=== PATIENT | female | born 1950 | race Caucasian/White ===

== ENCOUNTER 2022-05-13 22:07 | Observation (INO) | payer MEDICARE, OTHER ==
--- NOTE | 2022-05-13 22:25 | ERPHSYRPT ---
- History of Present Illness Time Seen by Provider: 05/13/22 22:29 Historian: patient Exam Limitations: no limitations Physician History: Patient is a 71-year-old female presents emergency department for evaluation of left posterior flank pain radiating down to her left groin area. Symptoms started Marshal. Symptoms are constant. Symptoms are moderate in intensity. No specific worsening improving factors. Patient states she has had this pain in the past that spontaneously resolved. She describes this symptom as being a chronic intermittent. However the pain today is the worst that it has been. No trauma. No fever. No nausea vomiting or diaphoresis. No blood in her stool. Patient voices no other complaints or concerns at this time. Portions of this note were created with voice recognition technology. There may be grammatical, spelling, punctuation or sound alike errors Timing/Duration: day(s) (3 days, pain has been progressive.) Activities at Onset: none Quality: aching Abdominal Pain Onset Location: other (Left posterior flank ) Pain Radiation: LLQ (Pain radiates down from the left posterior flank to left lower quadrant) Severity of Pain-Max: moderate Severity of Pain-Current: mild Modifying Factors: Improves With: palpation (Palpation reproduces symptoms.) Associated Symptoms: denies symptoms Previous symptoms: no prior history Allergies/Adverse Reactions: codeine Allergy (Severe, Verified 05/13/22 22:41) Shortness of Breath latex Allergy (Intermediate, Verified 05/13/22 22:41) Blisters Home Medications: Atorvastatin Calcium 40 mg PO DAILY 05/13/22 [History] Bran/Gum/Fib/Rola/Psyl/Kelp/Pec [Fiber 6 Tablet] 1 tab PO DAILY 05/13/22 [History] Cetirizine HCl [Allergy] 1 tab PO DAILY 05/13/22 [History] Cyclobenzaprine HCl 10 mg [Cyclobenzaprine 10 MG] 10 mg PO TID PRN 05/13/22 [History] Dapagliflozin Propanediol [Farxiga] 5 mg PO DAILY 05/13/22 [History] Ergocalciferol (Vitamin D2) [Vitamin D2] 50 mcg PO DAILY 05/13/22 [History] Glipizide [Glipizide ER] 2.5 mg PO HS 05/13/22 [History] Levothyroxine Sodium [Levothyroxine] 25 mcg PO DAILY 05/13/22 [History] Losartan Potassium 50 mg [Cozaar 50 MG] 1 tab PO DAILY 05/13/22 [History] Metformin HCl 850 mg [Glucophage 850 MG] 1 tab PO HS 05/13/22 [History] Montelukast Sodium 10 mg [Singulair 10 MG] 10 mg PO HS 05/13/22 [History] Omeprazole 20 mg PO HS 05/13/22 [History] hydroCHLOROthiazide [Hydrochlorothiazide] 12.5 mg PO DAILY 05/13/22 [History] - Review of Systems Constitutional: No Symptoms, No Fever, No Chills Eyes: No Symptoms Ears, Nose, & Throat: No Symptoms Respiratory: No Symptoms, No Cough, No Dyspnea Cardiac: No Symptoms, No Chest Pain, No Edema, No Syncope Abdominal/Gastrointestinal: No Symptoms, No Abdominal Pain, No Nausea, No Vomiting, No Diarrhea Genitourinary Symptoms: No Symptoms, No Dysuria Musculoskeletal: No Symptoms, No Back Pain, No Neck Pain Skin: No Symptoms, No Rash Neurological: No Symptoms, No Dizziness, No Focal Weakness, No Sensory Changes Psychological: No Symptoms Endocrine: No Symptoms Hematologic/Lymphatic: No Symptoms Immunological/Allergic: No Symptoms All Other Systems: Reviewed and Negative - Nursing Vital Signs Nursing Vital Signs: Initial Vital Signs Temperature 99.1 F 05/13/22 22:27 Pulse Rate 85 05/13/22 22:27 Respiratory Rate 20 05/13/22 22:27 Blood Pressure 130/72 05/13/22 22:27 O2 Sat by Pulse Oximetry 96 05/13/22 22:27 Pain Scale Pain Intensity 7 - Physical Exam General Appearance: no apparent distress, alert Eye Exam: PERRL/EOMI, eyes nml inspection Ears, Nose, Throat Exam: normal ENT inspection, pharynx normal, moist mucous membranes Neck Exam: normal inspection, non-tender, supple, full range of motion Respiratory Exam: normal breath sounds, lungs clear, airway intact, No respiratory distress Cardiovascular Exam: regular rate/rhythm, normal heart sounds, normal peripheral pulses Gastrointestinal/Abdomen Exam: soft, tenderness (Tenderness flank down to the left lower quadrant.), No mass Back Exam: normal inspection, normal range of motion, No CVA tenderness, No vertebral tenderness Extremity Exam: normal inspection, normal range of motion, pelvis stable Neurologic Exam: alert, oriented x 3, cooperative, normal mood/affect, nml cerebellar function, sensation nml, No motor deficits Skin Exam: normal color, warm, dry SpO2 Interpretation: normal SpO2: 98 O2 Delivery: Room Air - Course Nursing assessment & vital signs reviewed: Yes - CT Exams Abdomen/Pelvis CT Interpretation: Tele-radiologist Report (There is a segment of wall thickening at the junction of the sigmoid and descending colon consistent in appearance with acute diverticulitis. Indeterminate exophytic left renal mass) Ordered Tests: Active Orders 24 hr Category Date Time Status EKG-ER Only STAT Care 05/13/22 22:26 Active IV Insertion STAT Care 05/13/22 22:26 Active ABDOMEN AND PELVIS W/0 CONTRAS [CT] Stat Exams 05/13/22 22:26 Taken CBC W DIFF Stat Lab 05/13/22 22:35 Completed CMP Stat Lab 05/13/22 22:35 Completed LIPASE Stat Lab 05/13/22 22:35 Completed TROPONIN Q3H Lab 05/13/22 22:35 Completed TROPONIN Q3H Lab 05/14/22 01:30 Completed UA W/RFX CULTURE Stat Lab 05/13/22 22:35 Completed Transfer Order Routine Transfer 05/14/22 Ordered Medication Summary Generic Name Dose Route Start Last Admin Trade Name Freq PRN Reason Stop Dose Admin Sodium Chloride 1,000 mls @ 100 mls/hr 05/13/22 22:30 05/13/22 22:33 Sodium Chloride 0.9% 1000 Ml IV 06/12/22 22:29 100 mls/hr .Q10H RUDOLPH Administration Discontinued Medications Generic Name Dose Route Start Last Admin Trade Name Freq PRN Reason Stop Dose Admin Levofloxacin/Dextrose 500 mg in 100 mls @ 100 mls/hr 05/14/22 01:42 05/14/22 02:43 Levofloxacin 500mg/100ml D5w IV 05/14/22 02:41 100 mls/hr STAT STA 100 mls/hr Administration Metronidazole 500 mg in 100 mls @ 200 mls/hr 05/14/22 01:43 05/14/22 02:09 Flagyl 500 Mg Ivpb IV 05/14/22 02:12 200 mls/hr STAT STA 200 mls/hr Administration Levofloxacin/Dextrose Confirm 05/14/22 02:05 Levofloxacin 500mg/100ml D5w Administered 05/14/22 02:06 Dose 500 mg in 100 mls @ ud IV .STK-MED ONE Metronidazole Confirm 05/14/22 02:05 Flagyl 500 Mg Ivpb Administered 05/14/22 02:06 Dose 500 mg in 100 mls @ ud IV .STK-MED ONE Ketorolac Tromethamine 30 mg 05/14/22 00:45 05/14/22 00:51 Ketorolac Tromethamine 30 Mg/Ml Inj IM 05/14/22 00:46 30 mg STAT ONE Administration Ketorolac Tromethamine Confirm 05/14/22 00:48 Ketorolac Tromethamine 30 Mg/Ml Inj Administered 05/14/22 00:49 Dose 30 mg .ROUTE .STK-MED ONE Morphine Sulfate 2 mg 05/13/22 22:36 05/13/22 22:46 Morphine Sulfate 2 Mg/Ml Inj IV 05/13/22 22:37 2 mg STAT ONE Administration Morphine Sulfate Confirm 05/13/22 22:44 Morphine Sulfate 2 Mg/Ml Inj Administered 05/13/22 22:45 Dose 2 mg .ROUTE .STK-MED ONE Morphine Sulfate 2 mg 05/14/22 01:45 05/14/22 02:08 Morphine Sulfate 2 Mg/Ml Inj IV 05/14/22 01:46 2 mg STAT ONE Administration Morphine Sulfate Confirm 05/14/22 02:05 Morphine Sulfate 2 Mg/Ml Inj Administered 05/14/22 02:06 Dose 2 mg .ROUTE .STK-MED ONE Ondansetron HCl 4 mg 05/13/22 22:36 05/13/22 22:47 Ondansetron Hcl 4 Mg/2 Ml Vial IV 05/13/22 22:37 4 mg STAT ONE Administration Ondansetron HCl Confirm 05/13/22 22:44 Ondansetron Hcl 4 Mg/2 Ml Vial Administered 05/13/22 22:45 Dose 4 mg .ROUTE .STK-MED ONE Lab/Rad Data: Laboratory Result Diagrams 05/13/22 22:35 05/13/22 22:35 Laboratory Results 05/14/22 05/14/22 05/13/22 Range/Units 02:00 01:30 22:35 WBC (4.0-10.5) x10^3/uL RBC (4.1-5.4) x10^6/uL Hgb (12.0-16.0) g/dL Hct (35-47) % MCV (78-100) fL MCH (26-32) pg MCHC (32-36) g/dL RDW (11.5-14.0) % Plt Count (150-450) x10^3/uL MPV (7.5-11.0) fL Gran % (36.0-66.0) % Immature Gran % (Auto) (0.00-0.4) % Nucleat RBC Rel Count (0.00-0.1) % Eos # (Auto) (0-0.5) x10^3/uL Immature Gran # (Auto) (0.00-0.03) x10^3u/L Absolute Lymphs (auto) (1.0-4.6) x10^3/uL Absolute Monos (auto) (0.0-1.3) x10^3/uL Absolute Nucleated RBC (0.00-0.01) x10^3u/L Lymphocytes % (24.0-44.0) % Monocytes % (0.0-12.0) % Eosinophils % (0.00-5.0) % Basophils % (0.0-0.4) % Absolute Granulocytes (1.4-6.9) x10^3/uL Basophils # (0-0.4) x10^3/uL Sodium (137-145) mmol/L Potassium (3.5-5.1) mmol/L Chloride (98-107) mmol/L Carbon Dioxide (22-30) mmol/L Anion Gap (5-15) MEQ/L BUN (7-17) mg/dL Creatinine (0.52-1.04) mg/dL Estimated GFR ML/MIN Glucose (74-106) mg/dL Calcium (8.4-10.2) mg/dL Total Bilirubin (0.2-1.3) mg/dL AST (14-36) U/L ALT (0-35) U/L Alkaline Phosphatase (38-126) U/L Troponin I < 0.012 (0.000-0.034) ng/mL Serum Total Protein (6.3-8.2) g/dL Albumin (3.5-5.0) g/dL Lipase (23-300) U/L Urinalys Dipstick Clnc MAIN LAB Urine Color YELLOW (YELLOW) Urine Appearance CLEAR (CLEAR) Urine pH 5.5 (5-6) Ur Specific [place] 1.010 (1.005-1.025) POC Urine Protein Conf NEGATIVE (Negative) Urine Ketones NEGATIVE (NEGATIVE) Urine Nitrite NEGATIVE (NEGATIVE) Urine Bilirubin NEGATIVE (NEGATIVE) Urine Urobilinogen 1 (0-1) mg/dL Urine Leukocytes NEGATIVE (NEGATIVE) Urine WBC (Auto) 6-10 (0-5) /HPF Urine RBC (Auto) 0-2 (0-2) /HPF U Epithel Cells (Auto) RARE (FEW) /HPF Urine Bacteria (Auto) RARE (NEGATIVE) /HPF Urine RBC NEGATIVE (0-5) Raul/ul Urine Mucus (Auto) SLIGHT (NEGATIVE) /HPF Ur Culture Indicated? NO Urine Glucose >=1000 (NEGATIVE) mg/dL Influenza Type A Ag NEGATIVE (NEGATIVE) Influenza Type B Ag NEGATIVE (NEGATIVE) RSV (PCR) NEGATIVE (Negative) SARS-CoV-2 (PCR) NEGATIVE (NEGATIVE) 05/13/22 05/13/22 05/13/22 Range/Units 22:35 22:35 22:35 WBC 11.3 H (4.0-10.5) x10^3/uL RBC 3.86 L (4.1-5.4) x10^6/uL Hgb 11.2 L (12.0-16.0) g/dL Hct 34.9 L (35-47) % MCV 90.4 (78-100) fL MCH 29.0 (26-32) pg MCHC 32.1 (32-36) g/dL RDW 12.2 (11.5-14.0) % Plt Count 195 (150-450) x10^3/uL MPV 9.9 (7.5-11.0) fL Gran % 69.8 H (36.0-66.0) % Immature Gran % (Auto) 0.3 (0.00-0.4) % Nucleat RBC Rel Count 0.0 (0.00-0.1) % Eos # (Auto) 0.12 (0-0.5) x10^3/uL Immature Gran # (Auto) 0.03 (0.00-0.03) x10^3u/L Absolute Lymphs (auto) 2.52 (1.0-4.6) x10^3/uL Absolute Monos (auto) 0.70 (0.0-1.3) x10^3/uL Absolute Nucleated RBC 0.00 (0.00-0.01) x10^3u/L Lymphocytes % 22.3 L (24.0-44.0) % Monocytes % 6.2 (0.0-12.0) % Eosinophils % 1.1 (0.00-5.0) % Basophils % 0.3 (0.0-0.4) % Absolute Granulocytes 7.89 H (1.4-6.9) x10^3/uL Basophils # 0.03 (0-0.4) x10^3/uL Sodium 138 (137-145) mmol/L Potassium 4.0 (3.5-5.1) mmol/L Chloride 100 (98-107) mmol/L Carbon Dioxide 26 (22-30) mmol/L Anion Gap 16.1 H (5-15) MEQ/L BUN 32 H (7-17) mg/dL Creatinine 1.65 H (0.52-1.04) mg/dL Estimated GFR 32.6 ML/MIN Glucose 132 H (74-106) mg/dL Calcium 9.8 (8.4-10.2) mg/dL Total Bilirubin 0.80 (0.2-1.3) mg/dL AST 45 H (14-36) U/L ALT 37 H (0-35) U/L Alkaline Phosphatase 168 H (38-126) U/L Troponin I < 0.012 (0.000-0.034) ng/mL Serum Total Protein 8.3 H (6.3-8.2) g/dL Albumin 4.4 (3.5-5.0) g/dL Lipase 111 (23-300) U/L Urinalys Dipstick Clnc Urine Color (YELLOW) Urine Appearance (CLEAR) Urine pH (5-6) Ur Specific [place] (1.005-1.025) POC Urine Protein Conf (Negative) Urine Ketones (NEGATIVE) Urine Nitrite (NEGATIVE) Urine Bilirubin (NEGATIVE) Urine Urobilinogen (0-1) mg/dL Urine Leukocytes (NEGATIVE) Urine WBC (Auto) (0-5) /HPF Urine RBC (Auto) (0-2) /HPF U Epithel Cells (Auto) (FEW) /HPF Urine Bacteria (Auto) (NEGATIVE) /HPF Urine RBC (0-5) Raul/ul Urine Mucus (Auto) (NEGATIVE) /HPF Ur Culture Indicated? Urine Glucose (NEGATIVE) mg/dL Influenza Type A Ag (NEGATIVE) Influenza Type B Ag (NEGATIVE) RSV (PCR) (Negative) SARS-CoV-2 (PCR) (NEGATIVE) - Progress Progress: improved Progress Note: Patient 71-year-old diabetic female presents to our ED with progressive ab dominal pain. Patient has a history of diverticulitis. Work-up reveals an acute diverticulitis. Patient received morphine for pain control. Leukocytosis observed on CBC. CT scan reveals acute diverticulitis as well as incidental left renal exophytic mass. Patient received Levaquin and Flagyl in our ED. We will admit patient for further evaluation and treatment. Patient will be admitted to Dr. Taveras's service. Dr. Taveras covering Dr. Gambino. plan of care discussed with patient. She agrees to admission at [facility] for further evaluation and treatment. She voices no other complaints or concerns at this time. Portions of this note were created with voice recognition technology. There may be grammatical, spelling, punctuation or sound alike errors 05/14/22 03:[address] Lucian Will see patient in: hospital (observation) Counseled pt/family regarding: lab results, diagnosis, rad results - Departure Departure Disposition: Home Clinical Impression: Leukocytosis, Chronic renal insufficiency, Left renal mass, Acute diverticulitis, Glucosuria Condition: Stable Critical Care Time: No Referrals: GUTIERREZ COOLEY [Primary Care Provider] - Follow up/PCP as directed
[2022-05-13] MEDS ORDERED: Sodium Chloride 0.9% 1000 ML 1,000 ML ONE (22:30)
[2022-05-13] MEDS ORDERED: Sodium Chloride 0.9% 1000 ML 1,000 ML IV SCH (22:30)
[2022-05-13] MEDS ORDERED: Zofran 4 MG/2 ML VIAL IV ONE (22:36)
[2022-05-13] MEDS ORDERED: MORPHINE SULFATE 2 MG INJ IV ONE (22:36)
[2022-05-13 22:39] LABS: Absolute Neutrophil Ct (ANC) 7.89 x10^3/uL (1.4-6.9); Basophil (Absolute #) 0.03 x10^3/uL (0-0.4); Eosinophil % 1.1 % (0.00-5.0); Eosinophil (Absolute #) 0.12 x10^3/uL (0-0.5); Hematocrit 34.9 % (35-47); Hemoglobin 11.2 g/dL (12.0-16.0); Lymphocyte (Absolute #) 2.52 x10^3/uL (1.0-4.6); Lymphocytes % 22.3 % (24.0-44.0); Mean Cell Volume 90.4 fL (78-100); Mean Corpuscular Hgb Concent. 32.1 g/dL (32-36); Mean Platelet Volume 9.9 fL (7.5-11.0); Monocytes % 6.2 % (0.0-12.0); Neutrophil % 69.8 % (36.0-66.0); Platelet Count 195 x10^3/uL (150-450); Red Blood Count 3.86 x10^6/uL (4.1-5.4); Red Cell Distribution Width 12.2 % (11.5-14.0); White Blood Count 11.3 x10^3/uL (4.0-10.5)
[2022-05-13 22:42] LABS: Bacteria RARE /HPF (NEGATIVE); Epithelial Cells RARE /HPF (FEW); Mucus SLIGHT /HPF (NEGATIVE); RBC 0-2 /HPF (0-2)
[2022-05-13 22:43] LABS: Appearance CLEAR (CLEAR); Bilirubin NEGATIVE (NEGATIVE); Glucose >=1000 mg/dL (NEGATIVE); Ketones NEGATIVE (NEGATIVE); Nitrite NEGATIVE (NEGATIVE); Ph 5.5 (5-6); Protein,Urine Dip NEGATIVE (Negative); RBC NEGATIVE Ery/ul (0-5); Urobilinogen 1 mg/dL (0-1)
[2022-05-13 22:44] LABS: Dipstick done @ ? MAIN LAB; Urine Cultured Indicated? NO
[2022-05-13] MEDS ORDERED: MORPHINE SULFATE 2 MG INJ ONE (22:44)
[2022-05-13] MEDS ORDERED: Zofran 4 MG/2 ML VIAL ONE (22:44)
[2022-05-13 23:04] LABS: ALBUMIN 4.4 g/dL (3.5-5.0); ANION GAP 16.1 MEQ/L (5-15); BILIRUBIN,TOTAL 0.8 mg/dL (0.2-1.3); Calcium 9.8 mg/dL (8.4-10.2); Creatinine 1 1.65 mg/dL (0.52-1.04); EST GLOMERULAR FILTRATION RATE 32.6 ML/MIN; Total Protein 8.3 g/dL (6.3-8.2)
[2022-05-14] MEDS ORDERED: TORAdol 30 mg Injection IM ONE (00:45)
[2022-05-14] MEDS ORDERED: TORAdol 30 mg Injection ONE (00:48)
[2022-05-14] MEDS ORDERED: Levofloxacin 500MG/100ML D5W 500 MG/100 ML BAG IV STA (01:42)
[2022-05-14] MEDS ORDERED: FLAGYL 500 MG IVPB 500 MG/100 ML BAG IV STA (01:43)
[2022-05-14] MEDS ORDERED: MORPHINE SULFATE 2 MG INJ IV ONE (01:45)
[2022-05-14] MEDS ORDERED: MORPHINE SULFATE 2 MG INJ ONE (02:05)
[2022-05-14] MEDS ORDERED: Levofloxacin 500MG/100ML D5W 500 MG/100 ML BAG IV ONE (02:05)
[2022-05-14] MEDS ORDERED: FLAGYL 500 MG IVPB 500 MG/100 ML BAG IV ONE (02:05)
[2022-05-14 02:31] LABS: INFLUENZA A NEGATIVE (NEGATIVE); INFLUENZA B NEGATIVE (NEGATIVE); RESPIRATORY SYNCTIAL VIRUS NEGATIVE (Negative); SARS-CoV-2 Xpert Express NEGATIVE (NEGATIVE)
[2022-05-14] MEDS ORDERED: MORPHINE SULFATE 2 MG INJ IV PRN ×2 (03:16→08:31)
[2022-05-14] MEDS ORDERED: Zofran 4 MG/2 ML VIAL IV PRN (03:16)
[2022-05-14 05:35] LABS: Absolute Neutrophil Ct (ANC) 6.12 x10^3/uL (1.4-6.9); Basophil (Absolute #) 0.02 x10^3/uL (0-0.4); Eosinophil % 1.1 % (0.00-5.0); Hemoglobin 10.2 g/dL (12.0-16.0); Lymphocyte (Absolute #) 2.14 x10^3/uL (1.0-4.6); Lymphocytes % 23.9 % (24.0-44.0); Mean Cell Volume 91.7 fL (78-100); Mean Corpuscular Hemoglobin 29.2 pg (26-32); Mean Corpuscular Hgb Concent. 31.9 g/dL (32-36); Mean Platelet Volume 10.8 fL (7.5-11.0); Monocyte (Absolute #) 0.55 x10^3/uL (0.0-1.3); Monocytes % 6.1 % (0.0-12.0); Neutrophil % 68.3 % (36.0-66.0); Platelet Count 137 x10^3/uL (150-450); Red Blood Count 3.49 x10^6/uL (4.1-5.4); Red Cell Distribution Width 12.2 % (11.5-14.0)
[2022-05-14 06:14] LABS: ALBUMIN 3.7 g/dL (3.5-5.0); ANION GAP 13.3 MEQ/L (5-15); BILIRUBIN,TOTAL 0.9 mg/dL (0.2-1.3); Calcium 9.1 mg/dL (8.4-10.2); Creatinine 1 1.68 mg/dL (0.52-1.04); EST GLOMERULAR FILTRATION RATE 31.9 ML/MIN; Potassium 4.2 mmol/L (3.5-5.1)
[2022-05-14] MEDS: FLAGYL 500 MG IVPB 500 MG/100 ML BAG IV SCH ×3 (06:42→18:32)
[2022-05-14] MEDS: Sodium Chloride 0.9% 1000 ML 1,000 ML IV SCH ×2 (07:53→18:32)
--- NOTE | 2022-05-14 08:27 | PCM.HP ---
History of Present Illness - Chief Complaint Chief Complaint: diverticulitis History of Present Illness: is a 71 year old female who reported to the ER with a complaint of left lower abdomen pain for the last 3-4 days with some radiation to the flank, no blood in stool, hasn't had a bowel movement for several days. found to have exophytic mass on left kidney, known kidney disease and sees neprhologist, has not been told if there was a mass there previously. - Review of Systems Constitutional: No Fever, No Chills Respiratory: No Cough, No Short Of Breath Cardiac: No Chest Pain, No Edema, No Syncope Abdominal/Gastrointestinal: Abdominal Pain Skin: No Rash All Other Systems: Reviewed and Negative Medications & Allergies Home Medications: Home Medication List Atorvastatin Calcium 40 mg PO DAILY 05/13/22 [History Confirmed 05/13/22] Cetirizine HCl [Allergy] 10 mg PO DAILY 05/13/22 [History Confirmed 05/14/22] Dapagliflozin Propanediol [Farxiga] 5 mg PO DAILY 05/13/22 [History Confirmed 05/13/22] Ergocalciferol (Vitamin D2) [Vitamin D2] 50 mcg PO DAILY 05/13/22 [History Confirmed 05/13/22] Glipizide [Glipizide ER] 2.5 mg PO HS 05/13/22 [History Confirmed 05/13/22] Levothyroxine Sodium [Levothyroxine] 25 mcg PO DAILY 05/13/22 [History Confirmed 05/13/22] Losartan Potassium 50 mg [Cozaar 50 MG] 50 mg PO DAILY 05/13/22 [History Confirmed 05/14/22] Metformin HCl 850 mg [Glucophage 850 MG] 850 mg PO HS 05/13/22 [History Confirmed 05/14/22] Montelukast Sodium 10 mg [Singulair 10 MG] 10 mg PO HS 05/13/22 [History Confirmed 05/13/22] Omeprazole 20 mg PO HS 05/13/22 [History Confirmed 05/13/22] hydroCHLOROthiazide [Hydrochlorothiazide] 12.5 mg PO DAILY 05/13/22 [History Confirmed 05/13/22] Allergies/Adverse Reactions: Allergies Allergy/AdvReac Type Severity Reaction Status Date / Time codeine Allergy Severe Shortness Verified 05/14/22 03:44 of Breath latex Allergy Intermediate Blisters Verified 05/14/22 03:44 - Past Medical History Past Medical History: Yes Neurological History: No Pertinent History ENT History: Cataracts Cardiac History: High Cholesterol, Hypertension Respiratory History: No Pertinent History Endocrine Medical History: Diabetes Type II, Hypothyroidism Musculoskelatal History: Arthritis, Fibromyalgia GI Medical History: Diverticulitis, GERD, Gallbladder Disease History: Other Pyscho-Social History: No Pertinent History Reproductive Disorders: No Pertinent History Comment: mass on kidney, anemia - Female History Are you now?: No - Past Surgical History Past Surgical History: Yes Neuro Surgical History: No Pertinent History Cardiac History: No Pertinent History Respiratory Surgery: No Pertinent History GI Surgical History: Appendectomy, Cholecystectomy Genitourinary Surgical Hx: No Pertinent History Musculskeletal Surgical Hx: No Pertinent History Female Surgical History: Hysterectomy, Dilation & Curettage Other Surgical History: right thumb, shoulder - Social History Smoking Status: Never smoker Exposure to second hand smoke: No Alcohol: None Drug Use: none - Physical Exam Vital Signs: Vital Signs - 24 hr Temp Pulse Resp BP Pulse Ox 05/14/22 07:28 98.4 F 69 16 106/55 92 L 05/14/22 03:47 97.0 F 80 16 114/56 94 L 05/14/22 03:11 98 05/14/22 02:00 70 18 115/63 96 05/14/22 01:00 74 18 128/82 93 L 05/14/22 00:00 77 18 95/45 96 05/13/22 23:00 78 16 115/59 93 L 05/13/22 22:27 99.1 F 85 20 130/72 96 General Appearance: mild distress Neurologic Exam: alert, oriented x 3 Respiratory Exam: normal breath sounds, lungs clear, No respiratory distress Cardiovascular Exam: regular rate/rhythm, normal heart sounds, normal peripheral pulses Gastrointestinal/Abdomen Exam: soft, tenderness (LLQ), No distention, No mass, No guarding, No rebound Extremity Exam: normal inspection, normal range of motion, pelvis stable Skin Exam: normal color, warm, dry, No rash Results - Labs Lab/Micro Results: Lab Results-Last 24 Hours 05/13/22 05/13/22 05/13/22 Range/Units 22:35 22:35 22:35 WBC 11.3 H (4.0-10.5) x10^3/uL RBC 3.86 L (4.1-5.4) x10^6/uL Hgb 11.2 L (12.0-16.0) g/dL Hct 34.9 L (35-47) % MCV 90.4 (78-100) fL MCH 29.0 (26-32) pg MCHC 32.1 (32-36) g/dL RDW 12.2 (11.5-14.0) % Plt Count 195 (150-450) x10^3/uL MPV 9.9 (7.5-11.0) fL Gran % 69.8 H (36.0-66.0) % Immature Gran % (Auto) 0.3 (0.00-0.4) % Nucleat RBC Rel Count 0.0 (0.00-0.1) % Eos # (Auto) 0.12 (0-0.5) x10^3/uL Immature Gran # (Auto) 0.03 (0.00-0.03) x10^3u/L Absolute Lymphs (auto) 2.52 (1.0-4.6) x10^3/uL Absolute Monos (auto) 0.70 (0.0-1.3) x10^3/uL Absolute Nucleated RBC 0.00 (0.00-0.01) x10^3u/L Lymphocytes % 22.3 L (24.0-44.0) % Monocytes % 6.2 (0.0-12.0) % Eosinophils % 1.1 (0.00-5.0) % Basophils % 0.3 (0.0-0.4) % Absolute Granulocytes 7.89 H (1.4-6.9) x10^3/uL Basophils # 0.03 (0-0.4) x10^3/uL Sodium 138 (137-145) mmol/L Potassium 4.0 (3.5-5.1) mmol/L Chloride 100 (98-107) mmol/L Carbon Dioxide 26 (22-30) mmol/L Anion Gap 16.1 H (5-15) MEQ/L BUN 32 H (7-17) mg/dL Creatinine 1.65 H (0.52-1.04) mg/dL Estimated GFR 32.6 ML/MIN Glucose 132 H (74-106) mg/dL POC Glucometer (74 to 106) mg/dL Calcium 9.8 (8.4-10.2) mg/dL Total Bilirubin 0.80 (0.2-1.3) mg/dL AST 45 H (14-36) U/L ALT 37 H (0-35) U/L Alkaline Phosphatase 168 H (38-126) U/L Troponin I < 0.012 (0.000-0.034) ng/mL Serum Total Protein 8.3 H (6.3-8.2) g/dL Albumin 4.4 (3.5-5.0) g/dL Lipase 111 (23-300) U/L Urinalys Dipstick Clnc Urine Color (YELLOW) Urine Appearance (CLEAR) Urine pH (5-6) Ur Specific [place] (1.005-1.025) POC Urine Protein Conf (Negative) Urine Ketones (NEGATIVE) Urine Nitrite (NEGATIVE) Urine Bilirubin (NEGATIVE) Urine Urobilinogen (0-1) mg/dL Urine Leukocytes (NEGATIVE) Urine WBC (Auto) (0-5) /HPF Urine RBC (Auto) (0-2) /HPF U Epithel Cells (Auto) (FEW) /HPF Urine Bacteria (Auto) (NEGATIVE) /HPF Urine RBC (0-5) Raul/ul Urine Mucus (Auto) (NEGATIVE) /HPF Ur Culture Indicated? Urine Glucose (NEGATIVE) mg/dL Influenza Type A Ag (NEGATIVE) Influenza Type B Ag (NEGATIVE) RSV (PCR) (Negative) SARS-CoV-2 (PCR) (NEGATIVE) 05/13/22 05/14/22 05/14/22 Range/Units 22:35 01:30 02:00 WBC (4.0-10.5) x10^3/uL RBC (4.1-5.4) x10^6/uL Hgb (12.0-16.0) g/dL Hct (35-47) % MCV (78-100) fL MCH (26-32) pg MCHC (32-36) g/dL RDW (11.5-14.0) % Plt Count (150-450) x10^3/uL MPV (7.5-11.0) fL Gran % (36.0-66.0) % Immature Gran % (Auto) (0.00-0.4) % Nucleat RBC Rel Count (0.00-0.1) % Eos # (Auto) (0-0.5) x10^3/uL Immature Gran # (Auto) (0.00-0.03) x10^3u/L Absolute Lymphs (auto) (1.0-4.6) x10^3/uL Absolute Monos (auto) (0.0-1.3) x10^3/uL Absolute Nucleated RBC (0.00-0.01) x10^3u/L Lymphocytes % (24.0-44.0) % Monocytes % (0.0-12.0) % Eosinophils % (0.00-5.0) % Basophils % (0.0-0.4) % Absolute Granulocytes (1.4-6.9) x10^3/uL Basophils # (0-0.4) x10^3/uL Sodium (137-145) mmol/L Potassium (3.5-5.1) mmol/L Chloride (98-107) mmol/L Carbon Dioxide (22-30) mmol/L Anion Gap (5-15) MEQ/L BUN (7-17) mg/dL Creatinine (0.52-1.04) mg/dL Estimated GFR ML/MIN Glucose (74-106) mg/dL POC Glucometer (74 to 106) mg/dL Calcium (8.4-10.2) mg/dL Total Bilirubin (0.2-1.3) mg/dL AST (14-36) U/L ALT (0-35) U/L Alkaline Phosphatase (38-126) U/L Troponin I < 0.012 (0.000-0.034) ng/mL Serum Total Protein (6.3-8.2) g/dL Albumin (3.5-5.0) g/dL Lipase (23-300) U/L Urinalys Dipstick Clnc MAIN LAB Urine Color YELLOW (YELLOW) Urine Appearance CLEAR (CLEAR) Urine pH 5.5 (5-6) Ur Specific [place] 1.010 (1.005-1.025) POC Urine Protein Conf NEGATIVE (Negative) Urine Ketones NEGATIVE (NEGATIVE) Urine Nitrite NEGATIVE (NEGATIVE) Urine Bilirubin NEGATIVE (NEGATIVE) Urine Urobilinogen 1 (0-1) mg/dL Urine Leukocytes NEGATIVE (NEGATIVE) Urine WBC (Auto) 6-10 (0-5) /HPF Urine RBC (Auto) 0-2 (0-2) /HPF U Epithel Cells (Auto) RARE (FEW) /HPF Urine Bacteria (Auto) RARE (NEGATIVE) /HPF Urine RBC NEGATIVE (0-5) Raul/ul Urine Mucus (Auto) SLIGHT (NEGATIVE) /HPF Ur Culture Indicated? NO Urine Glucose >=1000 (NEGATIVE) mg/dL Influenza Type A Ag NEGATIVE (NEGATIVE) Influenza Type B Ag NEGATIVE (NEGATIVE) RSV (PCR) NEGATIVE (Negative) SARS-CoV-2 (PCR) NEGATIVE (NEGATIVE) 05/14/22 05/14/22 05/14/22 Range/Units 04:00 05:00 07:07 WBC 9.0 (4.0-10.5) x10^3/uL RBC 3.49 L (4.1-5.4) x10^6/uL Hgb 10.2 L (12.0-16.0) g/dL Hct 32.0 L (35-47) % MCV 91.7 (78-100) fL MCH 29.2 (26-32) pg MCHC 31.9 L (32-36) g/dL RDW 12.2 (11.5-14.0) % Plt Count 137 L (150-450) x10^3/uL MPV 10.8 (7.5-11.0) fL Gran % 68.3 H (36.0-66.0) % Immature Gran % (Auto) 0.4 (0.00-0.4) % Nucleat RBC Rel Count 0.0 (0.00-0.1) % Eos # (Auto) 0.10 (0-0.5) x10^3/uL Immature Gran # (Auto) 0.04 H (0.00-0.03) x10^3u/L Absolute Lymphs (auto) 2.14 (1.0-4.6) x10^3/uL Absolute Monos (auto) 0.55 (0.0-1.3) x10^3/uL Absolute Nucleated RBC 0.00 (0.00-0.01) x10^3u/L Lymphocytes % 23.9 L (24.0-44.0) % Monocytes % 6.1 (0.0-12.0) % Eosinophils % 1.1 (0.00-5.0) % Basophils % 0.2 (0.0-0.4) % Absolute Granulocytes 6.12 (1.4-6.9) x10^3/uL Basophils # 0.02 (0-0.4) x10^3/uL Sodium 138 (137-145) mmol/L Potassium 4.2 (3.5-5.1) mmol/L Chloride 103 (98-107) mmol/L Carbon Dioxide 26 (22-30) mmol/L Anion Gap 13.3 (5-15) MEQ/L BUN 33 H (7-17) mg/dL Creatinine 1.68 H (0.52-1.04) mg/dL Estimated GFR 31.9 ML/MIN Glucose 81 (74-106) mg/dL POC Glucometer 85 (74 to 106) mg/dL Calcium 9.1 (8.4-10.2) mg/dL Total Bilirubin 0.90 (0.2-1.3) mg/dL AST 55 H (14-36) U/L ALT 42 H (0-35) U/L Alkaline Phosphatase 135 H (38-126) U/L Troponin I (0.000-0.034) ng/mL Serum Total Protein 7.0 (6.3-8.2) g/dL Albumin 3.7 (3.5-5.0) g/dL Lipase (23-300) U/L Urinalys Dipstick Clnc Urine Color (YELLOW) Urine Appearance (CLEAR) Urine pH (5-6) Ur Specific [place] (1.005-1.025) POC Urine Protein Conf (Negative) Urine Ketones (NEGATIVE) Urine Nitrite (NEGATIVE) Urine Bilirubin (NEGATIVE) Urine Urobilinogen (0-1) mg/dL Urine Leukocytes (NEGATIVE) Urine WBC (Auto) (0-5) /HPF Urine RBC (Auto) (0-2) /HPF U Epithel Cells (Auto) (FEW) /HPF Urine Bacteria (Auto) (NEGATIVE) /HPF Urine RBC (0-5) Raul/ul Urine Mucus (Auto) (NEGATIVE) /HPF Ur Culture Indicated? Urine Glucose (NEGATIVE) mg/dL Influenza Type A Ag (NEGATIVE) Influenza Type B Ag (NEGATIVE) RSV (PCR) (Negative) SARS-CoV-2 (PCR) (NEGATIVE) - Radiology Impressions Radiology Exams & Impressions: Radiology Procedures Category Date Time Status ABDOMEN AND PELVIS W/0 CONTRAS [CT] Stat Exams 05/13/22 22:26 Taken Assessment/Plan (1) Acute diverticulitis Current Visit: Yes Status: Acute Assessment & Plan: continue levaquin/flagyl Code(s): K57.92 - DVTRCLI OF INTEST, PART UNSP, W/O PERF OR ABSCESS W/O BLEED (2) Left renal mass Current Visit: Yes Status: Acute Assessment & Plan: ultrasound reviewed from 2019 and shows a left renal cyst 1.8cm, awaiting CT read by our radiologist for comparison Code(s): N28.89 - OTHER SPECIFIED DISORDERS OF KIDNEY AND URETER (3) Constipation Current Visit: Yes Status: Acute Code(s): K59.00 - CONSTIPATION, UNSPECIFIED (4) Chronic renal insufficiency Current Visit: Yes Status: Acute Code(s): N18.9 - CHRONIC KIDNEY DISEASE, UNSPECIFIED
[2022-05-14] MEDS ORDERED: HUMALOG SQ PRN (08:30)
[2022-05-14] MEDS ORDERED: DULCOLAX 5 MG PO PRN (08:30)
--- NOTE | 2022-05-14 08:54 | XRAY ---
Indication: Left abdomen/flank pain. Constipation and nausea. Multiple contiguous axial images obtained through the abdomen and pelvis without contrast. Comparison: None Lung bases demonstrates minimal bibasilar fibrosis/scarring. No infiltrate or effusion. Heart not enlarged. Small right infrahilar calcified node. Stomach mildly distended with food. Noncontrasted stomach and bowel loops appear nonobstructed. Mild diffuse scattered colonic fecal debris throughout including rectum and scattered sigmoid diverticulosis. Proximal sigmoid colon demonstrates short segment of mild circumferential wall thickening with pericolonic stranding favoring diverticulitis. No free fluid/air. Tiny hepatic calcified granuloma. Appendectomy, cholecystectomy, and partial hysterectomy reported. Left kidney demonstrates 2.2 cm upper pole exophytic mass, possible cyst. Remaining liver, pancreas, spleen, adrenal glands, kidneys, ureters, and bladder are unremarkable for noncontrast exam. Minimal scattered aortoiliac calcifications without AAA. Osseous structures intact with mild osteopenia and mild degenerative changes throughout the thoracolumbar spine. Impression: 1. Sigmoid diverticulosis with proximal diverticulitis. No complications. 2. 2.2 cm left renal exophytic mass, possible cyst. Initial sonogram may yield further information. 3. Mild diffuse fecal stasis. 4. Incidental chronic bony findings and old granulomatous disease. Comment: Preliminary interpretation made by [facility]. No critical discrepancy.
[2022-05-14] MEDS: Cozaar 50 MG PO SCH (09:47)
[2022-05-14] MEDS: hydroDIURIL 25 MG PO SCH (09:47)
[2022-05-14] MEDS: PROTONIX 40 MG IV IV SCH (09:47)
[2022-05-14] MEDS ORDERED: NON-FORMULARY ITEM (Hydrochlorothiazide [Hydrochlorothiazide] 12.5 MG Tablet) PO SCH (10:00)
[2022-05-14] MEDS ORDERED: NON-FORMULARY ITEM (Levothyroxine Sodium [Levothyroxine] 25 MCG Capsule) PO SCH (10:00)
[2022-05-14] MEDS: SYNTHROID 25 MCG PO SCH (10:39)
[2022-05-14] MEDS ORDERED: NON-FORMULARY ITEM (Omeprazole [Omeprazole] 20 MG Tab.Rap.Dr) PO SCH (22:00)
[2022-05-14] MEDS ORDERED: Protonix 40MG Tablet PO SCH (22:00)
[2022-05-14] MEDS ORDERED: Levaquin 250MG/50ML D5W 250 MG/50 ML BAG IV SCH (22:00)
[2022-05-14] MEDS ORDERED: Levofloxacin 500MG/100ML D5W 500 MG/100 ML BAG IV SCH (22:00)
[2022-05-15] MEDS: FLAGYL 500 MG IVPB 500 MG/100 ML BAG IV SCH ×2 (01:31→06:15)
[2022-05-15] MEDS: Sodium Chloride 0.9% 1000 ML 1,000 ML IV SCH ×2 (01:32→06:15)
[2022-05-15 06:13] LABS: Absolute Neutrophil Ct (ANC) 4.13 x10^3/uL (1.4-6.9); Basophil (Absolute #) 0.02 x10^3/uL (0-0.4); Eosinophil % 1.6 % (0.00-5.0); Hematocrit 31.2 % (35-47); Hemoglobin 9.9 g/dL (12.0-16.0); Lymphocyte (Absolute #) 1.53 x10^3/uL (1.0-4.6); Lymphocytes % 24.8 % (24.0-44.0); Mean Cell Volume 91.2 fL (78-100); Mean Corpuscular Hemoglobin 28.9 pg (26-32); Mean Corpuscular Hgb Concent. 31.7 g/dL (32-36); Mean Platelet Volume 10.6 fL (7.5-11.0); Monocyte (Absolute #) 0.37 x10^3/uL (0.0-1.3); Platelet Count 137 x10^3/uL (150-450); Red Blood Count 3.42 x10^6/uL (4.1-5.4); Red Cell Distribution Width 12.3 % (11.5-14.0); White Blood Count 6.2 x10^3/uL (4.0-10.5)
[2022-05-15 06:33] LABS: ALBUMIN 3.4 g/dL (3.5-5.0); ANION GAP 13.8 MEQ/L (5-15); BILIRUBIN,TOTAL 1.1 mg/dL (0.2-1.3); Calcium 9.2 mg/dL (8.4-10.2); Creatinine 1 1.43 mg/dL (0.52-1.04); EST GLOMERULAR FILTRATION RATE 38.4 ML/MIN; Potassium 4.6 mmol/L (3.5-5.1); Total Protein 6.5 g/dL (6.3-8.2)
[2022-05-15] MEDS ORDERED: CITROMA 296 ML PO ONE (08:34)
--- NOTE | 2022-05-15 08:38 | PCM.DS ---
Discharge Summary Date of Admission: 05/14/22 03:11 Admitting Physician: MAKAYLA STOUT Primary Care Provider: GUTIERREZ COOLEY Allergies Allergies codeine Allergy (Severe, Verified 05/14/22 03:44) Shortness of Breath latex Allergy (Intermediate, Verified 05/14/22 03:44) Blisters Hospital Summary - Hospital Course Hospital Course: patient admitted with LLQ abd pain, diverticulitis on CT, concerning with left renal mass, exophytic. on review ultrasound from 2019 showed 1.8cm exophytic cyst, ultrasound pending but suspect this is a cyst. tolerating po, pain improv ed and patient requesting discharge to home - Vitals & Intake/Output Vital Signs: Vital Signs Temperature 97.5 F 05/15/22 03:55 Pulse Rate 65 05/15/22 07:51 Respiratory Rate 16 05/15/22 07:51 Blood Pressure 99/55 05/15/22 07:51 O2 Sat by Pulse Oximetry 97 05/15/22 07:51 Intake & Output: Intake & Output 05/12/22 05/13/22 05/14/22 05/15/22 11:59 11:59 11:59 11:59 Intake Total 240 2223 Output Total 150 2400 Balance 90 -177 Weight 93.9 kg - Lab Result Diagrams: 05/15/22 05:59 05/15/22 05:59 Lab Results-Last 24 Hrs: Lab Results-Last 24 Hours 05/14/22 05/14/22 05/14/22 Range/Units 11:42 16:17 20:43 WBC (4.0-10.5) x10^3/uL RBC (4.1-5.4) x10^6/uL Hgb (12.0-16.0) g/dL Hct (35-47) % MCV (78-100) fL MCH (26-32) pg MCHC (32-36) g/dL RDW (11.5-14.0) % Plt Count (150-450) x10^3/uL MPV (7.5-11.0) fL Gran % (36.0-66.0) % Immature Gran % (Auto) (0.00-0.4) % Nucleat RBC Rel Count (0.00-0.1) % Eos # (Auto) (0-0.5) x10^3/uL Immature Gran # (Auto) (0.00-0.03) x10^3u/L Absolute Lymphs (auto) (1.0-4.6) x10^3/uL Absolute Monos (auto) (0.0-1.3) x10^3/uL Absolute Nucleated RBC (0.00-0.01) x10^3u/L Lymphocytes % (24.0-44.0) % Monocytes % (0.0-12.0) % Eosinophils % (0.00-5.0) % Basophils % (0.0-0.4) % Absolute Granulocytes (1.4-6.9) x10^3/uL Basophils # (0-0.4) x10^3/uL Sodium (137-145) mmol/L Potassium (3.5-5.1) mmol/L Chloride (98-107) mmol/L Carbon Dioxide (22-30) mmol/L Anion Gap (5-15) MEQ/L BUN (7-17) mg/dL Creatinine (0.52-1.04) mg/dL Estimated GFR ML/MIN Glucose (74-106) mg/dL POC Glucometer 88 88 86 (74 to 106) mg/dL Calcium (8.4-10.2) mg/dL Total Bilirubin (0.2-1.3) mg/dL AST (14-36) U/L ALT (0-35) U/L Alkaline Phosphatase (38-126) U/L Serum Total Protein (6.3-8.2) g/dL Albumin (3.5-5.0) g/dL 05/15/22 05/15/22 05/15/22 Range/Units 05:59 05:59 07:22 WBC 6.2 (4.0-10.5) x10^3/uL RBC 3.42 L (4.1-5.4) x10^6/uL Hgb 9.9 L (12.0-16.0) g/dL Hct 31.2 L (35-47) % MCV 91.2 (78-100) fL MCH 28.9 (26-32) pg MCHC 31.7 L (32-36) g/dL RDW 12.3 (11.5-14.0) % Plt Count 137 L (150-450) x10^3/uL MPV 10.6 (7.5-11.0) fL Gran % 67.0 H (36.0-66.0) % Immature Gran % (Auto) 0.3 (0.00-0.4) % Nucleat RBC Rel Count 0.0 (0.00-0.1) % Eos # (Auto) 0.10 (0-0.5) x10^3/uL Immature Gran # (Auto) 0.02 (0.00-0.03) x10^3u/L Absolute Lymphs (auto) 1.53 (1.0-4.6) x10^3/uL Absolute Monos (auto) 0.37 (0.0-1.3) x10^3/uL Absolute Nucleated RBC 0.00 (0.00-0.01) x10^3u/L Lymphocytes % 24.8 (24.0-44.0) % Monocytes % 6.0 (0.0-12.0) % Eosinophils % 1.6 (0.00-5.0) % Basophils % 0.3 (0.0-0.4) % Absolute Granulocytes 4.13 (1.4-6.9) x10^3/uL Basophils # 0.02 (0-0.4) x10^3/uL Sodium 139 (137-145) mmol/L Potassium 4.6 (3.5-5.1) mmol/L Chloride 105 (98-107) mmol/L Carbon Dioxide 25 (22-30) mmol/L Anion Gap 13.8 (5-15) MEQ/L BUN 23 H (7-17) mg/dL Creatinine 1.43 H (0.52-1.04) mg/dL Estimated GFR 38.4 ML/MIN Glucose 116 H (74-106) mg/dL POC Glucometer 114 H (74 to 106) mg/dL Calcium 9.2 (8.4-10.2) mg/dL Total Bilirubin 1.10 (0.2-1.3) mg/dL AST 81 H (14-36) U/L ALT 85 H (0-35) U/L Alkaline Phosphatase 155 H (38-126) U/L Serum Total Protein 6.5 (6.3-8.2) g/dL Albumin 3.4 L (3.5-5.0) g/dL Micro Results-Entire Visit: Accuchecks Date 05/14/22 Date 05/14/22 Date 05/14/22 Time 21:36 Time 16:36 Time 11:54 - Radiology Exams Ordered Rad Exams-Entire Visit: Radiology Procedures Category Date Time Status ABDOMEN AND PELVIS W/0 CONTRAS [CT] Stat Exams 05/13/22 22:26 Completed KIDNEY [US] Urgent Exams 05/15/22 10:00 Ordered Discharge Exam General Appearance: no apparent distress, alert Neurologic Exam: alert, oriented x 3 Respiratory Exam: normal breath sounds, lungs clear, No respiratory distress Cardiovascular Exam: regular rate/rhythm, normal heart sounds Gastrointestinal/Abdomen Exam: soft, normal bowel sounds, No tenderness Extremity Exam: normal inspection, normal range of motion Skin Exam: normal color, warm, dry Final Diagnosis/Problem List - Final Discharge Diagnosis/Problem (1) Acute diverticulitis Current Visit: Yes Status: Acute Code(s): K57.92 - DVTRCLI OF INTEST, PART UNSP, W/O PERF OR ABSCESS W/O BLEED (2) Left renal mass Current Visit: Yes Status: Acute Assessment & Plan: ultrasound pending, 2.2cm on CT, in 2020 has 1.8cm exophytic cyst. suspect cyst Code(s): N28.89 - OTHER SPECIFIED DISORDERS OF KIDNEY AND URETER (3) Constipation Current Visit: Yes Status: Acute Code(s): K59.00 - CONSTIPATION, UNSPECIFIED (4) Chronic renal insufficiency Current Visit: Yes Status: Acute Code(s): N18.9 - CHRONIC KIDNEY DISEASE, UNSPECIFIED - Discharge Disposition: Home, Self-Care Condition: Stable Prescriptions: New Metronidazole 500 mg [Flagyl 500 MG] 500 mg PO TID #15 tablet Levofloxacin [Levofloxacin 250MG Tablet] 250 mg PO DAILY #5 tab Continue hydroCHLOROthiazide [Hydrochlorothiazide] 12.5 mg PO DAILY Omeprazole 20 mg PO HS Montelukast Sodium 10 mg [Singulair 10 MG] 10 mg PO HS Metformin HCl 850 mg [Glucophage 850 MG] 850 mg PO HS Losartan Potassium 50 mg [Cozaar 50 MG] 50 mg PO DAILY Levothyroxine Sodium [Levothyroxine] 25 mcg PO DAILY Glipizide [Glipizide ER] 2.5 mg PO HS Ergocalciferol (Vitamin D2) [Vitamin D2] 50 mcg PO DAILY Dapagliflozin Propanediol [Farxiga] 5 mg PO DAILY Cetirizine HCl [Allergy] 10 mg PO DAILY Atorvastatin Calcium 40 mg PO DAILY Follow up with: GUTIERREZ COOLEY [Primary Care Provider] - Call for Appointment
[2022-05-15] MEDS ORDERED: CITROMA 296 ML ONE (09:04)
[2022-05-15] MEDS: hydroDIURIL 25 MG PO SCH (11:09)
[2022-05-15] MEDS: Cozaar 50 MG PO SCH (11:09)
[2022-05-15] MEDS: PROTONIX 40 MG IV IV SCH (11:10)
[2022-05-15] MEDS: SYNTHROID 25 MCG PO SCH (11:10)
[2022-05-15 11:32] LABS: Slide Review 1 YES
--- NOTE | 2022-05-15 11:57 | XRAY ---
Indication: Left renal mass on recent CT abdomen/pelvis May 13, 2022. Two-dimensional renal sonogram performed. Comparison: October 10, 2020 Both kidneys again normal in reniform shape with normal color perfusion. Right kidney measures 11.2 x 5.1 x 4.7 cm and the left measures 11.3 x 5.1 x 4.3 cm. Left upper pole again demonstrates grossly stable 2 cm cortical cyst. No new solid/cystic renal mass or hydronephrosis. Urinary bladder is near empty and grossly unremarkable. Impression: Grossly stable left upper renal cortical cyst corresponding to CT finding. Remaining renal sonogram is negative.
[2022-05-15 12:18] VITALS: BP 140/63; PULSE 68; O2SAT 100
== END 2022-05-15 13:35 | disposition home or self-care (01) ==
LOC: ED 22:07 → MED SURG 05-14 03:11
PROVIDERS: ADMIT Family Medicine; ATTEND Family Medicine
DX: K57.92 Diverticulitis of intestine, part unspecified, without perforation or abscess without bleeding (principal); N28.89 Other specified disorders of kidney and ureter; K59.00 Constipation, unspecified; N18.9 Chronic kidney disease, unspecified; E11.9 Type 2 diabetes mellitus without complications; I10 Essential (primary) hypertension; E78.00 Pure hypercholesterolemia, unspecified; E03.9 Hypothyroidism, unspecified; Z79.899 Other long term (current) drug therapy; Z20.828 Contact with and (suspected) exposure to other viral communicable diseases
CPT/HCPCS: 0241U; 36000; 36415; 74176; 76770; 80053; 81015; 82947; 83690; 84484; 85025; 93005; 93268; 96372; 96374; 96375; 96376; 99285; G0378; J1885; J1956; J2270; J2405; A9270-GY

== ENCOUNTER 2022-07-05 12:56 | Observation (INO) | payer MEDICARE, OTHER ==
[2022-07-05] MEDS ORDERED: Sodium Chloride 0.9% 1000 ML 1,000 ML IV STA (13:30)
[2022-07-05] MEDS ORDERED: Zofran 4 MG/2 ML VIAL IV ONE (13:30)
[2022-07-05] MEDS ORDERED: ANTIVERT 25 MG PO ONE (13:30)
[2022-07-05 14:00] LABS: Absolute Neutrophil Ct (ANC) 5.54 x10^3/uL (1.4-6.9); Basophil (Absolute #) 0.02 x10^3/uL (0-0.4); Eosinophil % 0.4 % (0.00-5.0); Eosinophil (Absolute #) 0.03 x10^3/uL (0-0.5); Hematocrit 35.9 % (35-47); Hemoglobin 11.6 g/dL (12.0-16.0); Lymphocyte (Absolute #) 1.02 x10^3/uL (1.0-4.6); Lymphocytes % 14.4 % (24.0-44.0); Mean Cell Volume 90.2 fL (78-100); Mean Corpuscular Hemoglobin 29.1 pg (26-32); Mean Corpuscular Hgb Concent. 32.3 g/dL (32-36); Mean Platelet Volume 10.7 fL (7.5-11.0); Monocyte (Absolute #) 0.45 x10^3/uL (0.0-1.3); Monocytes % 6.4 % (0.0-12.0); Neutrophil % 78.2 % (36.0-66.0); Platelet Count 168 x10^3/uL (150-450); Red Blood Count 3.98 x10^6/uL (4.1-5.4); Red Cell Distribution Width 13.1 % (11.5-14.0); White Blood Count 7.1 x10^3/uL (4.0-10.5)
[2022-07-05] MEDS ORDERED: TYLENOL 325 MG PO STA (14:06)
--- NOTE | 2022-07-05 14:08 | ERPHSYRPT ---
- History of Present Illness Time Seen by Provider: 07/05/22 13:03 Source: patient Exam Limitations: no limitations Patient Subjective Stated Complaint: Dizziness Triage Nursing Assessment: Patient brought back to ED per w/c and transferred to bed with assist of 1. Patient A+O x.3 Patient's skin flushed, warm and dry. Patient complains of dizziness, fever, congestion, headache, bodyaches and weakness since yesterday. Patient complains of pain all over 03/12. Lungs clear a/p chriss. Physician History: 71-year-old female presented in the ER with chief complaint of dizziness and fever chills with URI symptoms. Patient reports she started to feel dizzy lightheaded yesterday whenever she gets up and tries to walk she feels she is going to fall and pass out. This is progressively worsening. Denies any focal numbness tingling weakness. She also reports having URI symptoms with sinus/nasal congestion with minimal phlegm productive cough with some chest soreness and body aches. Patient has a fever of 101 on presentation in the ER. No abdominal pain nausea or vomiting. Timing/Duration: today, gradual onset Cough Quality/Degree: mild, moderate, productive cough Associated Symptoms: fever, chills, chest pain/soreness, cough, dizziness, headache, muscle aches, nasal congestion, nasal drainage, sinus infection Allergies/Adverse Reactions: codeine Allergy (Severe, Verified 07/05/22 13:09) Shortness of Breath latex Allergy (Intermediate, Verified 07/05/22 13:09) Blisters Home Medications: Atorvastatin Calcium 40 mg PO DAILY 05/13/22 [History] Cetirizine HCl [Allergy] 10 mg PO DAILY 05/13/22 [History] Dapagliflozin Propanediol [Farxiga] 5 mg PO DAILY 05/13/22 [History] Ergocalciferol (Vitamin D2) [Vitamin D2] 50 mcg PO DAILY 05/13/22 [History] Glipizide [Glipizide ER] 2.5 mg PO HS 05/13/22 [History] Levothyroxine Sodium [Levothyroxine] 25 mcg PO DAILY 05/13/22 [History] Losartan Potassium 50 mg [Cozaar 50 MG] 50 mg PO DAILY 05/13/22 [History] Metformin HCl 850 mg [Glucophage 850 MG] 850 mg PO HS 05/13/22 [History] Montelukast Sodium 10 mg [Singulair 10 MG] 10 mg PO HS 05/13/22 [History] Omeprazole 20 mg PO HS 05/13/22 [History] hydroCHLOROthiazide [Hydrochlorothiazide] 12.5 mg PO DAILY 05/13/22 [History] Hx Tetanus, Diphtheria Vaccination/Date Given: Yes Hx Influenza Vaccination/Date Given: Yes Hx Pneumococcal Vaccination/Date Given: Yes Immunizations Up to Date: Yes Travel Risk - International Travel Have you traveled outside of the country in past 3 weeks: No - Coronavirus Screening Are you exhibiting any of the following symptoms?: Yes Symptoms: Fever, Headaches/Body Aches/Fatigue Close contact with a COVID-19 positive Pt in past 14-21 Days: No - Vaccine Status Have you recieved a Covid-19 vaccination: Yes [employer]: [employer] - Review of Systems Constitutional: Fever, Chills, Fatigue, Weakness Eyes: No Symptoms Ears, Nose, & Throat: Nose Congestion, Sinus Drainage Respiratory: Cough Cardiac: Chest Pain Abdominal/Gastrointestinal: No Symptoms Genitourinary Symptoms: No Symptoms Musculoskeletal: Myalgias Skin: No Symptoms Neurological: Dizziness, Headache Psychological: No Symptoms Endocrine: No Symptoms Hematologic/Lymphatic: No Symptoms Immunological/Allergic: No Symptoms - Past Medical History Pertinent Past Medical History: Yes Neurological History: No Pertinent History ENT History: Cataracts Cardiac History: High Cholesterol, Hypertension Respiratory History: No Pertinent History Endocrine Medical History: Diabetes Type II, Hypothyroidism Musculoskeletal History: Arthritis, Fibromyalgia GI Medical History: Diverticulitis, GERD, Gallbladder Disease History: Other Psycho-Social History: No Pertinent History Female Reproductive Disorders: No Pertinent History Other Medical History: mass on kidney, anemia - Past Surgical History Past Surgical History: Yes Neuro Surgical History: No Pertinent History Cardiac: No Pertinent History Respiratory: No Pertinent History Gastrointestinal: Appendectomy, Cholecystectomy Genitourinary: No Pertinent History Musculoskeletal: No Pertinent History Female Surgical History: Hysterectomy, Dilation & Curettage Other Surgical History: right thumb, shoulder - Social History Smoking Status: Never smoker Exposure to second hand smoke: No Drug Use: none Patient Lives Alone: No - Nursing Vital Signs Nursing Vital Signs: Initial Vital Signs Temperature 101.3 F 07/05/22 13:09 Pulse Rate 84 07/05/22 13:09 Respiratory Rate 18 07/05/22 13:09 Blood Pressure 125/58 07/05/22 13:09 O2 Sat by Pulse Oximetry 98 07/05/22 13:09 Pain Scale Pain Intensity 5 - Physical Exam General Appearance: no apparent distress, alert Eye Exam: PERRL/EOMI, eyes nml inspection Ears, Nose, Throat Exam: TMs normal, moist mucous membranes, pharyngeal erythema Neck Exam: normal inspection, non-tender, supple, full range of motion, No meningismus Respiratory Exam: normal breath sounds, lungs clear Cardiovascular Exam: regular rate/rhythm, normal heart sounds Gastrointestinal/Abdomen Exam: soft, normal bowel sounds, No tenderness Back Exam: normal inspection, normal range of motion Extremity Exam: normal inspection, normal range of motion Neurologic Exam: alert, oriented x 3, cooperative Skin Exam: normal color SpO2 Interpretation: normal SpO2: 98 O2 Delivery: Room Air - Course EKG Interpreted by Me: RATE (82), Sinus Rhythm, NORMAL AXIS, NORMAL INTERVALS, Other (Nonspecific T wave changes) Ordered Tests: Active Orders 24 hr Category Date Time Status Bedrest ROUTINE Activity 07/05/22 16:12 Active Up With Assistance ROUTINE Activity 07/05/22 16:12 Active Code Status Order ROUTINE Care 07/05/22 16:12 Active Fall Protocol Q1H Care 07/05/22 16:12 Active IV Care Q6H Care 07/05/22 16:12 Active IV Insertion STAT Care 07/05/22 13:32 Completed Neuro Checks Q4H Care 07/05/22 16:12 Active POCT Glucose Check ACHS Care 07/05/22 16:[address] in Observation ROUTINE Care 07/05/22 16:12 Completed Stefano Romeo ROUTINE Care 07/05/22 16:12 Active Consistent Carbohydrate Diet 1800 Calorie Diet 07/05/22 Dinner Active CHEST 1 VIEW (PORTABLE) Stat Exams 07/05/22 13:30 Completed HEAD WITHOUT CONTRAST [CT] Stat Exams 07/05/22 13:30 Completed BLOOD CULTURE Stat Lab 07/05/22 13:45 Received CBC W DIFF AM.LAB Lab 07/06/22 04:00 Ordered CBC W DIFF Stat Lab 07/05/22 13:15 Completed CMP AM.LAB Lab 07/06/22 04:00 Ordered CULTURE,URINE Stat Lab 07/05/22 13:33 Received Lactic Acid Stat Lab 07/05/22 13:30 Completed MAGNESIUM Stat Lab 07/05/22 13:00 Received PROCALCITONIN Stat Lab 07/05/22 13:00 Received TROPONIN Q4H Lab 07/05/22 17:30 Ordered TROPONIN Q4H Lab 07/05/22 21:30 Ordered UA W/RFX CULTURE Stat Lab 07/05/22 13:33 Completed Transfer Order Routine Transfer 07/05/22 Completed Medication Summary Generic Name Dose Route Start Last Admin Trade Name Scooter PRN Reason Stop Dose Admin Acetaminophen 650 mg 07/05/22 16:12 Acetaminophen 325 Mg Tablet PO 08/04/22 16:11 Q4H PRN PRN PAIN AND/OR FEVER Albuterol/Ipratropium 3 ml 07/05/22 16:12 Ipratropium/Albuterol Sulfate 3 Ml Ampul.Neb IH 08/04/22 16:11 Q4HPRN PRN SHORTNESS OF BREATH/WHEEZING Famotidine 20 mg 07/05/22 22:00 Famotidine 20 Mg/1 Vial IV 08/04/22 21:59 Q12HT RUDOLPH Sodium Chloride 1,000 mls @ 100 mls/hr 07/05/22 16:12 Sodium Chloride 0.9% 1000 Ml IV 08/04/22 16:11 .Q10H RUDOLPH Ceftriaxone Sodium/Dextrose 1 g in 50 mls @ 100 mls/hr 07/06/22 10:00 Rocephin 1 Gm-D5w 50 Ml Bag IV 07/09/22 09:59 Q24H10 RUDOLPH Insulin Human Lispro 0 unit 07/05/22 16:12 Insulin Lispro 1 Unit SQ 08/04/22 16:11 UD PRN HYPERGLYCEMIA Morphine Sulfate 2 mg 07/05/22 16:12 Morphine Sulfate 2 Mg/Ml Inj IV 07/10/22 16:11 Q4H PRN PRN PAIN Ondansetron HCl 4 mg 07/05/22 16:12 Ondansetron Hcl 4 Mg/2 Ml Vial IV 08/04/22 16:11 Q6H PRN PRN NAUSEA/VOMITING Discontinued Medications Generic Name Dose Route Start Last Admin Trade Name Scooter PRN Reason Stop Dose Admin Acetaminophen 975 mg 07/05/22 14:06 07/05/22 14:12 Acetaminophen 325 Mg Tablet PO 07/05/22 14:07 975 mg STAT STA Administration Acetaminophen Confirm 07/05/22 14:09 Acetaminophen 325 Mg Tablet Administered 07/05/22 14:10 Dose 975 mg .ROUTE .STK-MED ONE Sodium Chloride 1,000 mls @ 999 mls/hr 07/05/22 13:30 07/05/22 15:21 Sodium Chloride 0.9% 1000 Ml IV 07/05/22 14:30 Infused .Q1H1M STA Infusion Sodium Chloride Confirm 07/05/22 14:10 Sodium Chloride 0.9% 1000 Ml Administered 07/05/22 14:11 Dose 1,000 mls @ ud .ROUTE .STK-MED ONE Ceftriaxone Sodium/Dextrose 1 g in 50 mls @ 100 mls/hr 07/05/22 15:39 07/05/22 15:54 Rocephin 1 Gm-D5w 50 Ml Bag IV 07/05/22 16:08 100 ml/hr STAT STA 100 mls/hr Administration Ceftriaxone Sodium/Dextrose Confirm 07/05/22 15:52 Rocephin 1 Gm-D5w 50 Ml Bag Administered 07/05/22 15:53 Dose 1 g in 50 mls @ ud IV .STK-MED ONE Meclizine HCl 25 mg 07/05/22 13:30 07/05/22 14:11 Meclizine Hcl 25 Mg Tablet PO 07/05/22 13:31 25 mg STAT ONE Administration Meclizine HCl Confirm 07/05/22 14:09 Meclizine Hcl 25 Mg Tablet Administered 07/05/22 14:10 Dose 25 mg .ROUTE .STK-MED ONE Ondansetron HCl 4 mg 07/05/22 13:30 07/05/22 14:11 Ondansetron Hcl 4 Mg/2 Ml Vial IV 07/05/22 13:31 4 mg STAT ONE Administration Ondansetron HCl Confirm 07/05/22 14:09 Ondansetron Hcl 4 Mg/2 Ml Vial Administered 07/05/22 14:10 Dose 4 mg .ROUTE .STK-MED ONE Lab/Rad Data: Laboratory Result Diagrams 07/05/22 13:15 07/05/22 13:15 Laboratory Results 07/05/22 07/05/22 07/05/22 Range/Units 13:45 13:33 13:30 WBC (4.0-10.5) x10^3/uL RBC (4.1-5.4) x10^6/uL Hgb (12.0-16.0) g/dL Hct (35-47) % MCV (78-100) fL MCH (26-32) pg MCHC (32-36) g/dL RDW (11.5-14.0) % Plt Count (150-450) x10^3/uL MPV (7.5-11.0) fL Gran % (36.0-66.0) % Immature Gran % (Auto) (0.00-0.4) % Nucleat RBC Rel Count (0.00-0.1) % Eos # (Auto) (0-0.5) x10^3/uL Immature Gran # (Auto) (0.00-0.03) x10^3u/L Absolute Lymphs (auto) (1.0-4.6) x10^3/uL Absolute Monos (auto) (0.0-1.3) x10^3/uL Absolute Nucleated RBC (0.00-0.01) x10^3u/L Lymphocytes % (24.0-44.0) % Monocytes % (0.0-12.0) % Eosinophils % (0.00-5.0) % Basophils % (0.0-0.4) % Absolute Granulocytes (1.4-6.9) x10^3/uL Basophils # (0-0.4) x10^3/uL Sodium Direct (138-146) mmol/L Potassium (3.5-4.9) mmol/L Chloride (98-109) mmol/L Carbon Dioxide (24-29) mmol/L Venous BUN (8-26) mg/dL Creatinine (0.6-1.3) mg/dL Glucose (70-105) mg/dL Lactic Acid 1.6 (0.4-2.0) Ionized Calcium (1.12-1.32) mmol/L Magnesium Troponin (0.00-0.03) ng/mL Procalcitonin Urinalys Dipstick Clnc MAIN LAB Urine Color YELLOW (YELLOW) Urine Appearance CLEAR (CLEAR) Urine pH 7.0 (5-6) Ur Specific [place] 1.015 (1.005-1.025) POC Urine Protein Conf NEGATIVE (Negative) Urine Ketones NEGATIVE (NEGATIVE) Urine Nitrite NEGATIVE (NEGATIVE) Urine Bilirubin NEGATIVE (NEGATIVE) Urine Urobilinogen 0.2 (0-1) mg/dL Urine Leukocytes NEGATIVE (NEGATIVE) Urine WBC (Auto) 6-10 (0-5) /HPF Urine RBC (Auto) 0-2 (0-2) /HPF U Epithel Cells (Auto) RARE (FEW) /HPF Urine Bacteria (Auto) NONE SEEN (NEGATIVE) /HPF Urine RBC NEGATIVE (0-5) Raul/ul Ur Culture Indicated? YES Urine Glucose >=1000 (NEGATIVE) mg/dL Influenza Type A Ag NEGATIVE (NEGATIVE) Influenza Type B Ag NEGATIVE (NEGATIVE) RSV (PCR) NEGATIVE (Negative) SARS-CoV-2 (PCR) POSITIVE A (NEGATIVE) 07/05/22 07/05/22 Range/Units 13:15 13:15 WBC 7.1 (4.0-10.5) x10^3/uL RBC 3.98 L (4.1-5.4) x10^6/uL Hgb 11.6 L (12.0-16.0) g/dL Hct 35.9 (35-47) % MCV 90.2 (78-100) fL MCH 29.1 (26-32) pg MCHC 32.3 (32-36) g/dL RDW 13.1 (11.5-14.0) % Plt Count 168 (150-450) x10^3/uL MPV 10.7 (7.5-11.0) fL Gran % 78.2 H (36.0-66.0) % Immature Gran % (Auto) 0.3 (0.00-0.4) % Nucleat RBC Rel Count 0.0 (0.00-0.1) % Eos # (Auto) 0.03 (0-0.5) x10^3/uL Immature Gran # (Auto) 0.02 (0.00-0.03) x10^3u/L Absolute Lymphs (auto) 1.02 (1.0-4.6) x10^3/uL Absolute Monos (auto) 0.45 (0.0-1.3) x10^3/uL Absolute Nucleated RBC 0.00 (0.00-0.01) x10^3u/L Lymphocytes % 14.4 L (24.0-44.0) % Monocytes % 6.4 (0.0-12.0) % Eosinophils % 0.4 (0.00-5.0) % Basophils % 0.3 (0.0-0.4) % Absolute Granulocytes 5.54 (1.4-6.9) x10^3/uL Basophils # 0.02 (0-0.4) x10^3/uL Sodium Direct 137 L (138-146) mmol/L Potassium 3.8 (3.5-4.9) mmol/L Chloride 100 (98-109) mmol/L Carbon Dioxide 25 (24-29) mmol/L Venous BUN 32 H (8-26) mg/dL Creatinine 1.6 H (0.6-1.3) mg/dL Glucose 99 (70-105) mg/dL Lactic Acid (0.4-2.0) Ionized Calcium 1.21 (1.12-1.32) mmol/L Magnesium Cancelled Troponin 0.01 (0.00-0.03) ng/mL Procalcitonin Cancelled Urinalys Dipstick Clnc Urine Color (YELLOW) Urine Appearance (CLEAR) Urine pH (5-6) Ur Specific [place] (1.005-1.025) POC Urine Protein Conf (Negative) Urine Ketones (NEGATIVE) Urine Nitrite (NEGATIVE) Urine Bilirubin (NEGATIVE) Urine Urobilinogen (0-1) mg/dL Urine Leukocytes (NEGATIVE) Urine WBC (Auto) (0-5) /HPF Urine RBC (Auto) (0-2) /HPF U Epithel Cells (Auto) (FEW) /HPF Urine Bacteria (Auto) (NEGATIVE) /HPF Urine RBC (0-5) Raul/ul Ur Culture Indicated? Urine Glucose (NEGATIVE) mg/dL Influenza Type A Ag (NEGATIVE) Influenza Type B Ag (NEGATIVE) RSV (PCR) (Negative) SARS-CoV-2 (PCR) (NEGATIVE) - Progress Progress: improved Air Movement: good Progress Note: 07/05/22 15:52 71-year-old is evaluated for flulike symptoms with dizziness and a fever of 101 on presentation. She is given fluids and Tylenol, on reevaluation feeling better. CT head is negative. Chest x-ray no pneumonic infiltrative process. Has normal white count, CKD with stable renal functions. Does have UTI and given a dose of Rocephin. Patient has a positive COVID-19. She still get dizzy and lightheaded with standing. Discussed with , reviewed history, work-up, recommended holding off on steroid and remdesivir for now. Patient is being admitted we will continue with IV hydration gently. Blood Culture(s) Obtained: Yes Antibiotics given: Yes Discussed with : Chuy Will see patient in: hospital (observation) Counseled pt/family regarding: lab results, diagnosis, rad results - Departure Departure Disposition: Observation Clinical Impression: COVID-19 virus detected, Acute UTI, Viral syndrome, Dizziness Condition: Stable Critical Care Time: No
[2022-07-05] MEDS ORDERED: ANTIVERT 25 MG ONE (14:09)
[2022-07-05] MEDS ORDERED: Zofran 4 MG/2 ML VIAL ONE (14:09)
[2022-07-05] MEDS ORDERED: TYLENOL 325 MG ONE (14:09)
[2022-07-05 14:10] LABS: Epithelial Cells RARE /HPF (FEW); RBC 0-2 /HPF (0-2)
[2022-07-05] MEDS ORDERED: Sodium Chloride 0.9% 1000 ML 1,000 ML ONE (14:10)
[2022-07-05 14:11] LABS: Appearance CLEAR (CLEAR); Bilirubin NEGATIVE (NEGATIVE); Dipstick done @ ? MAIN LAB; Glucose >=1000 mg/dL (NEGATIVE); Ketones NEGATIVE (NEGATIVE); Nitrite NEGATIVE (NEGATIVE); Protein,Urine Dip NEGATIVE (Negative); RBC NEGATIVE Ery/ul (0-5); Specific Gravity 1.015 (1.005-1.025); Urobilinogen 0.2 mg/dL (0-1)
[2022-07-05 14:21] LABS: Bacteria NONE SEEN /HPF (NEGATIVE)
[2022-07-05 14:22] LABS: Urine Cultured Indicated? YES
[2022-07-05 14:48] LABS: INFLUENZA A NEGATIVE (NEGATIVE); INFLUENZA B NEGATIVE (NEGATIVE); RESPIRATORY SYNCTIAL VIRUS NEGATIVE (Negative)
[2022-07-05 14:59] LABS: ISTAT CREA 1.6 mg/dL (0.6-1.3); ISTAT K 3.8 mmol/L (3.5-4.9)
[2022-07-05 15:09] LABS: ISTAT cTNI 0.01 ng/mL (0.00-0.03)
--- NOTE | 2022-07-05 15:20 | XRAY ---
Indication: Fever, headache, dizziness, and weakness. Multiple contiguous images obtained through the head without contrast. Comparison: None Age-appropriate global atrophy and minimal periventricular degenerative micro-ischemia bilaterally. No acute intracranial hemorrhage, abnormal extra-axial fluid collection, or mass effect. Fourth ventricle is midline without hydrocephalus. Bony calvarium intact. Mild mucosal thickening both ethmoid sinuses. Remaining visualized paranasal sinuses and mastoid air cells are clear. Impression: Nonacute senile brain. Incidental paranasal sinus disease.
[2022-07-05 15:21] LABS: SARS-CoV-2 Xpert Express POSITIVE (NEGATIVE)
--- NOTE | 2022-07-05 15:21 | XRAY ---
Indication: Dizziness, headache, fever, and weakness. Comparison: May 22, 2021 Portable apical lordotic chest is now clear. Heart not enlarged. Bony thorax intact again with mild osteopenia and degenerative changes. No acute findings.
[2022-07-05] MEDS ORDERED: ROCEPHIN 1 Gm-D5w 50 ml Bag** 1 G/50 ML IVPB IV STA (15:39)
[2022-07-05] MEDS ORDERED: ROCEPHIN 1 Gm-D5w 50 ml Bag** 1 G/50 ML IVPB IV ONE (15:52)
[2022-07-05] MEDS ORDERED: DUONEB 0.5-3 MG/3 ml Neb IH PRN (16:12)
[2022-07-05] MEDS ORDERED: Zofran 4 MG/2 ML VIAL IV PRN (16:12)
[2022-07-05] MEDS ORDERED: MORPHINE SULFATE 2 MG INJ IV PRN (16:12)
[2022-07-05] MEDS ORDERED: HUMALOG SQ PRN (16:12)
[2022-07-05 17:22] LABS: MAGNESIUM 1.9 mg/dL (1.6-2.3); PROCALCITONIN 0.096 ng/mL (0.030-0.080)
[2022-07-05 18:19] LABS: Hematocrit 34.9 % (35-47); Hemoglobin 10.9 g/dL (12.0-16.0); Mean Cell Volume 92.8 fL (78-100); Mean Corpuscular Hgb Concent. 31.2 g/dL (32-36); Mean Platelet Volume 10.4 fL (7.5-11.0); Platelet Count 147 x10^3/uL (150-450); Red Blood Count 3.76 x10^6/uL (4.1-5.4); White Blood Count 6.7 x10^3/uL (4.0-10.5)
[2022-07-05 18:21] LABS: ANION GAP 15.7 MEQ/L (5-15); Calcium 8.8 mg/dL (8.4-10.2); Creatinine 1 1.3 mg/dL (0.52-1.04); EST GLOMERULAR FILTRATION RATE 42.9 ML/MIN; PREALBUMIN 24.17 mg/dL (17.6-36.0); Potassium 3.7 mmol/L (3.5-5.1)
[2022-07-05] MEDS: Sodium Chloride 0.9% 1000 ML 1,000 ML IV SCH (19:39)
[2022-07-05] MEDS: Pepcid 20 MG VIAL IV SCH (21:17)
[2022-07-05] MEDS: TYLENOL 325 MG PO PRN (23:06)
[2022-07-06] MEDS: TYLENOL 325 MG PO PRN ×4 (03:12→21:03)
[2022-07-06] MEDS: Sodium Chloride 0.9% 1000 ML 1,000 ML IV SCH ×2 (04:54→16:40)
[2022-07-06] MEDS: Robitussin-Dm Syrup PO PRN ×2 (05:18→10:37)
[2022-07-06 06:26] LABS: Absolute Neutrophil Ct (ANC) 4.51 x10^3/uL (1.4-6.9); Basophil (Absolute #) 0.04 x10^3/uL (0-0.4); Eosinophil % 0.2 % (0.00-5.0); Eosinophil (Absolute #) 0.01 x10^3/uL (0-0.5); Hematocrit 31.3 % (35-47); Lymphocyte (Absolute #) 1.27 x10^3/uL (1.0-4.6); Lymphocytes % 20.3 % (24.0-44.0); Mean Cell Volume 90.7 fL (78-100); Mean Corpuscular Hgb Concent. 31.9 g/dL (32-36); Mean Platelet Volume 10.8 fL (7.5-11.0); Monocyte (Absolute #) 0.41 x10^3/uL (0.0-1.3); Monocytes % 6.6 % (0.0-12.0); Neutrophil % 72.1 % (36.0-66.0); Platelet Count 150 x10^3/uL (150-450); Red Blood Count 3.45 x10^6/uL (4.1-5.4); Red Cell Distribution Width 13.2 % (11.5-14.0); White Blood Count 6.3 x10^3/uL (4.0-10.5)
[2022-07-06 06:40] LABS: ALBUMIN 3.7 g/dL (3.5-5.0); ANION GAP 11.5 MEQ/L (5-15); BILIRUBIN,TOTAL 0.8 mg/dL (0.2-1.3); Calcium 8.7 mg/dL (8.4-10.2); Creatinine 1 1.61 mg/dL (0.52-1.04); EST GLOMERULAR FILTRATION RATE 33.5 ML/MIN; Potassium 3.9 mmol/L (3.5-5.1); Total Protein 6.8 g/dL (6.3-8.2)
[2022-07-06] MEDS: Pepcid 20 MG VIAL IV SCH ×2 (10:32→21:02)
[2022-07-06] MEDS: ROCEPHIN 1 Gm-D5w 50 ml Bag** 1 G/50 ML IVPB IV SCH (10:32)
--- NOTE | 2022-07-06 14:04 | PCM.HP ---
History of Present Illness - Chief Complaint Chief Complaint: Dizziness for 1-2 days History of Present Illness: is a 71 year old female. with chief complaint of dizziness and fever chills with URI symptoms. Patient reports she started to feel dizzy lightheaded yesterday whenever she gets up and tries to walk she feels she is going to fall and pass out. This is progressively worsening. Denies any focal numbness tingling weakness. She also reports having URI symptoms with sinus/nasal congestion with minimal phlegm productive cough with some chest soreness and body aches. Patient has a fever of 101 on presentation in the ER. No abdominal pain nausea or vomiting. Timing/Duration: today, gradual onset Cough Quality/Degree: mild, moderate, productive cough Associated Symptoms: fever, chills, chest pain/soreness, cough, dizziness, headache, muscle aches, nasal congestion, nasal drainage, sinus infection - Review of Systems Constitutional: Fever, Chills, Weakness Eyes: No Symptoms Ears, Nose, & Throat: Sinus Drainage Respiratory: Cough, No Short Of Breath Cardiac: Syncope, No Chest Pain, No Edema Abdominal/Gastrointestinal: No Abdominal Pain, No Nausea, No Vomiting, No Diarrhea Genitourinary Symptoms: No Dysuria Musculoskeletal: No Back Pain, No Neck Pain Skin: No Rash Neurological: Dizziness, No Focal Weakness, No Sensory Changes Psychological: No Symptoms Endocrine: No Symptoms Hematologic/Lymphatic: No Symptoms Immunological/Allergic: No Symptoms Medications & Allergies Home Medications: Home Medication List Atorvastatin Calcium 40 mg PO DAILY 05/13/22 [History Confirmed 07/05/22] Dapagliflozin Propanediol [Farxiga] 5 mg PO DAILY 05/13/22 [History Confirmed 07/05/22] Glipizide [Glipizide ER] 5 mg PO DAILY 05/13/22 [History Confirmed 07/05/22] Levothyroxine Sodium [Levothyroxine] 25 mcg PO DAILY 05/13/22 [History Confirmed 07/05/22] Losartan Potassium 50 mg [Cozaar 50 MG] 50 mg PO DAILY 05/13/22 [History Confirmed 07/05/22] Metformin HCl 850 mg [Glucophage 850 MG] 850 mg PO BID 05/13/22 [History Confirmed 07/05/22] Montelukast Sodium 10 mg [Singulair 10 MG] 10 mg PO DAILY 05/13/22 [History Confirmed 07/05/22] Omeprazole 20 mg PO DAILY 05/13/22 [History Confirmed 07/05/22] hydroCHLOROthiazide [Hydrochlorothiazide] 12.5 mg PO DAILY 05/13/22 [History Confirmed 07/05/22] Cyclobenzaprine HCl 10 mg [Cyclobenzaprine 10 MG] 10 mg PO TIDPRN PRN 07/05/22 [History Confirmed 07/05/22] Allergies/Adverse Reactions: Allergies Allergy/AdvReac Type Severity Reaction Status Date / Time codeine Allergy Severe Shortness Verified 07/05/22 13:09 of Breath latex Allergy Intermediate Blisters Verified 07/05/22 13:09 - Past Medical History Past Medical History: Yes Neurological History: No Pertinent History ENT History: Cataracts Cardiac History: High Cholesterol, Hypertension Respiratory History: No Pertinent History Endocrine Medical History: Diabetes Type II, Hypothyroidism Musculoskelatal History: Arthritis, Fibromyalgia GI Medical History: Diverticulitis, GERD, Gallbladder Disease History: Other Pyscho-Social History: No Pertinent History Reproductive Disorders: No Pertinent History Comment: mass on kidney, anemia - Past Surgical History Past Surgical History: Yes Neuro Surgical History: No Pertinent History Cardiac History: No Pertinent History Respiratory Surgery: No Pertinent History GI Surgical History: Appendectomy, Cholecystectomy Genitourinary Surgical Hx: No Pertinent History Musculskeletal Surgical Hx: No Pertinent History Female Surgical History: Hysterectomy, Dilation & Curettage Other Surgical History: right thumb, shoulder - Social History Smoking Status: Never smoker Exposure to second hand smoke: No Alcohol: None Drug Use: none - Physical Exam Vital Signs: Vital Signs - 24 hr Temp Pulse Resp BP Pulse Ox 07/06/22 12:00 19 07/06/22 10:00 19 07/06/22 08:00 98.8 F 72 19 125/65 96 07/06/22 03:45 99.6 F 80 17 118/59 92 L 07/06/22 01:22 99.3 F 07/05/22 23:39 102.4 F 85 19 126/68 93 L 07/05/22 20:00 99.2 F 73 20 106/60 96 07/05/22 16:37 99.4 F 75 22 129/62 96 07/05/22 16:21 98 07/05/22 16:16 99.4 F 75 129/62 96 07/05/22 14:28 78 118/85 92 L General Appearance: no apparent distress, alert Neurologic Exam: alert, oriented x 3, cooperative, normal mood/affect, nml cerebellar function, nml station & gait, sensation nml, No motor deficits Eye Exam: PERRL/EOMI, eyes nml inspection Ears, Nose, Throat Exam: normal ENT inspection, TMs normal, pharynx normal, moist mucous membranes Neck Exam: normal inspection, non-tender, supple, full range of motion Respiratory Exam: diminished breath sounds, No lungs clear, No respiratory distress Cardiovascular Exam: regular rate/rhythm, normal heart sounds, normal peripheral pulses Gastrointestinal/Abdomen Exam: soft, normal bowel sounds, No tenderness, No mass Back Exam: normal inspection, normal range of motion, No CVA tenderness, No vertebral tenderness Extremity Exam: normal inspection, normal range of motion, pelvis stable Skin Exam: normal color, warm, dry, No rash Lymphatic Exam: No adenopathy Results - Labs Lab/Micro Results: Lab Results-Last 24 Hours 07/05/22 07/05/22 07/05/22 Range/Units 13:00 13:15 13:15 WBC 7.1 (4.0-10.5) x10^3/uL RBC 3.98 L (4.1-5.4) x10^6/uL Hgb 11.6 L (12.0-16.0) g/dL Hct 35.9 (35-47) % MCV 90.2 (78-100) fL MCH 29.1 (26-32) pg MCHC 32.3 (32-36) g/dL RDW 13.1 (11.5-14.0) % Plt Count 168 (150-450) x10^3/uL MPV 10.7 (7.5-11.0) fL Gran % 78.2 H (36.0-66.0) % Immature Gran % (Auto) 0.3 (0.00-0.4) % Nucleat RBC Rel Count 0.0 (0.00-0.1) % Eos # (Auto) 0.03 (0-0.5) x10^3/uL Immature Gran # (Auto) 0.02 (0.00-0.03) x10^3u/L Absolute Lymphs (auto) 1.02 (1.0-4.6) x10^3/uL Absolute Monos (auto) 0.45 (0.0-1.3) x10^3/uL Absolute Nucleated RBC 0.00 (0.00-0.01) x10^3u/L Lymphocytes % 14.4 L (24.0-44.0) % Monocytes % 6.4 (0.0-12.0) % Eosinophils % 0.4 (0.00-5.0) % Basophils % 0.3 (0.0-0.4) % Absolute Granulocytes 5.54 (1.4-6.9) x10^3/uL Basophils # 0.02 (0-0.4) x10^3/uL Sodium (137-145) mmol/L Sodium Direct 137 L (138-146) mmol/L Potassium 3.8 (3.5-4.9) mmol/L Chloride 100 (98-109) mmol/L Carbon Dioxide 25 (24-29) mmol/L Anion Gap (5-15) MEQ/L BUN (7-17) mg/dL Venous BUN 32 H (8-26) mg/dL Creatinine 1.6 H (0.6-1.3) mg/dL Estimated GFR ML/MIN Glucose 99 (70-105) mg/dL POC Glucometer (74 to 106) mg/dL Hemoglobin A1c (4.5-6.0) % Calcium (8.4-10.2) mg/dL Ionized Calcium 1.21 (1.12-1.32) mmol/L Magnesium 1.9 Cancelled (1.6-2.3) mg/dL Total Bilirubin (0.2-1.3) mg/dL AST (14-36) U/L ALT (0-35) U/L Alkaline Phosphatase (38-126) U/L Troponin 0.01 (0.00-0.03) ng/mL Troponin I (0.000-0.034) ng/mL Serum Total Protein (6.3-8.2) g/dL Albumin (3.5-5.0) g/dL Prealbumin (17.6-36.0) mg/dL Procalcitonin 0.096 H Cancelled (0.030-0.080) ng/mL Urinalys Dipstick Clnc Urine Color (YELLOW) Urine Appearance (CLEAR) Urine pH (5-6) Ur Specific [place] (1.005-1.025) POC Urine Protein Conf (Negative) Urine Ketones (NEGATIVE) Urine Nitrite (NEGATIVE) Urine Bilirubin (NEGATIVE) Urine Urobilinogen (0-1) mg/dL Urine Leukocytes (NEGATIVE) Urine WBC (Auto) (0-5) /HPF Urine RBC (Auto) (0-2) /HPF U Epithel Cells (Auto) (FEW) /HPF Urine Bacteria (Auto) (NEGATIVE) /HPF Urine RBC (0-5) Raul/ul Ur Culture Indicated? Urine Glucose (NEGATIVE) mg/dL Influenza Type A Ag (NEGATIVE) Influenza Type B Ag (NEGATIVE) RSV (PCR) (Negative) SARS-CoV-2 (PCR) (NEGATIVE) 07/05/22 07/05/22 07/05/22 Range/Units 13:15 13:33 13:45 WBC (4.0-10.5) x10^3/uL RBC (4.1-5.4) x10^6/uL Hgb (12.0-16.0) g/dL Hct (35-47) % MCV (78-100) fL MCH (26-32) pg MCHC (32-36) g/dL RDW (11.5-14.0) % Plt Count (150-450) x10^3/uL MPV (7.5-11.0) fL Gran % (36.0-66.0) % Immature Gran % (Auto) (0.00-0.4) % Nucleat RBC Rel Count (0.00-0.1) % Eos # (Auto) (0-0.5) x10^3/uL Immature Gran # (Auto) (0.00-0.03) x10^3u/L Absolute Lymphs (auto) (1.0-4.6) x10^3/uL Absolute Monos (auto) (0.0-1.3) x10^3/uL Absolute Nucleated RBC (0.00-0.01) x10^3u/L Lymphocytes % (24.0-44.0) % Monocytes % (0.0-12.0) % Eosinophils % (0.00-5.0) % Basophils % (0.0-0.4) % Absolute Granulocytes (1.4-6.9) x10^3/uL Basophils # (0-0.4) x10^3/uL Sodium (137-145) mmol/L Sodium Direct (138-146) mmol/L Potassium (3.5-4.9) mmol/L Chloride (98-109) mmol/L Carbon Dioxide (24-29) mmol/L Anion Gap (5-15) MEQ/L BUN (7-17) mg/dL Venous BUN (8-26) mg/dL Creatinine (0.6-1.3) mg/dL Estimated GFR ML/MIN Glucose (70-105) mg/dL POC Glucometer (74 to 106) mg/dL Hemoglobin A1c 6.95 H (4.5-6.0) % Calcium (8.4-10.2) mg/dL Ionized Calcium (1.12-1.32) mmol/L Magnesium (1.6-2.3) mg/dL Total Bilirubin (0.2-1.3) mg/dL AST (14-36) U/L ALT (0-35) U/L Alkaline Phosphatase (38-126) U/L Troponin (0.00-0.03) ng/mL Troponin I (0.000-0.034) ng/mL Serum Total Protein (6.3-8.2) g/dL Albumin (3.5-5.0) g/dL Prealbumin (17.6-36.0) mg/dL Procalcitonin (0.030-0.080) ng/mL Urinalys Dipstick Clnc MAIN LAB Urine Color YELLOW (YELLOW) Urine Appearance CLEAR (CLEAR) Urine pH 7.0 (5-6) Ur Specific [place] 1.015 (1.005-1.025) POC Urine Protein Conf NEGATIVE (Negative) Urine Ketones NEGATIVE (NEGATIVE) Urine Nitrite NEGATIVE (NEGATIVE) Urine Bilirubin NEGATIVE (NEGATIVE) Urine Urobilinogen 0.2 (0-1) mg/dL Urine Leukocytes NEGATIVE (NEGATIVE) Urine WBC (Auto) 6-10 (0-5) /HPF Urine RBC (Auto) 0-2 (0-2) /HPF U Epithel Cells (Auto) RARE (FEW) /HPF Urine Bacteria (Auto) NONE SEEN (NEGATIVE) /HPF Urine RBC NEGATIVE (0-5) Raul/ul Ur Culture Indicated? YES Urine Glucose >=1000 (NEGATIVE) mg/dL Influenza Type A Ag NEGATIVE (NEGATIVE) Influenza Type B Ag NEGATIVE (NEGATIVE) RSV (PCR) NEGATIVE (Negative) SARS-CoV-2 (PCR) POSITIVE A (NEGATIVE) 07/05/22 07/05/22 07/05/22 Range/Units 17:15 18:00 18:00 WBC 6.7 (4.0-10.5) x10^3/uL RBC 3.76 L (4.1-5.4) x10^6/uL Hgb 10.9 L (12.0-16.0) g/dL Hct 34.9 L (35-47) % MCV 92.8 (78-100) fL MCH 29.0 (26-32) pg MCHC 31.2 L (32-36) g/dL RDW 13.0 (11.5-14.0) % Plt Count 147 L (150-450) x10^3/uL MPV 10.4 (7.5-11.0) fL Gran % (36.0-66.0) % Immature Gran % (Auto) (0.00-0.4) % Nucleat RBC Rel Count (0.00-0.1) % Eos # (Auto) (0-0.5) x10^3/uL Immature Gran # (Auto) (0.00-0.03) x10^3u/L Absolute Lymphs (auto) (1.0-4.6) x10^3/uL Absolute Monos (auto) (0.0-1.3) x10^3/uL Absolute Nucleated RBC (0.00-0.01) x10^3u/L Lymphocytes % (24.0-44.0) % Monocytes % (0.0-12.0) % Eosinophils % (0.00-5.0) % Basophils % (0.0-0.4) % Absolute Granulocytes (1.4-6.9) x10^3/uL Basophils # (0-0.4) x10^3/uL Sodium (137-145) mmol/L Sodium Direct (138-146) mmol/L Potassium (3.5-4.9) mmol/L Chloride (98-109) mmol/L Carbon Dioxide (24-29) mmol/L Anion Gap (5-15) MEQ/L BUN (7-17) mg/dL Venous BUN (8-26) mg/dL Creatinine (0.6-1.3) mg/dL Estimated GFR ML/MIN Glucose (70-105) mg/dL POC Glucometer 92 (74 to 106) mg/dL Hemoglobin A1c (4.5-6.0) % Calcium (8.4-10.2) mg/dL Ionized Calcium (1.12-1.32) mmol/L Magnesium (1.6-2.3) mg/dL Total Bilirubin (0.2-1.3) mg/dL AST (14-36) U/L ALT (0-35) U/L Alkaline Phosphatase (38-126) U/L Troponin (0.00-0.03) ng/mL Troponin I < 0.012 (0.000-0.034) ng/mL Serum Total Protein (6.3-8.2) g/dL Albumin (3.5-5.0) g/dL Prealbumin (17.6-36.0) mg/dL Procalcitonin (0.030-0.080) ng/mL Urinalys Dipstick Clnc Urine Color (YELLOW) Urine Appearance (CLEAR) Urine pH (5-6) Ur Specific [place] (1.005-1.025) POC Urine Protein Conf (Negative) Urine Ketones (NEGATIVE) Urine Nitrite (NEGATIVE) Urine Bilirubin (NEGATIVE) Urine Urobilinogen (0-1) mg/dL Urine Leukocytes (NEGATIVE) Urine WBC (Auto) (0-5) /HPF Urine RBC (Auto) (0-2) /HPF U Epithel Cells (Auto) (FEW) /HPF Urine Bacteria (Auto) (NEGATIVE) /HPF Urine RBC (0-5) Raul/ul Ur Culture Indicated? Urine Glucose (NEGATIVE) mg/dL Influenza Type A Ag (NEGATIVE) Influenza Type B Ag (NEGATIVE) RSV (PCR) (Negative) SARS-CoV-2 (PCR) (NEGATIVE) 07/05/22 07/05/22 07/06/22 Range/Units 18:00 20:54 05:20 WBC 6.3 (4.0-10.5) x10^3/uL RBC 3.45 L (4.1-5.4) x10^6/uL Hgb 10.0 L (12.0-16.0) g/dL Hct 31.3 L (35-47) % MCV 90.7 (78-100) fL MCH 29.0 (26-32) pg MCHC 31.9 L (32-36) g/dL RDW 13.2 (11.5-14.0) % Plt Count 150 (150-450) x10^3/uL MPV 10.8 (7.5-11.0) fL Gran % 72.1 H (36.0-66.0) % Immature Gran % (Auto) 0.2 (0.00-0.4) % Nucleat RBC Rel Count 0.0 (0.00-0.1) % Eos # (Auto) 0.01 (0-0.5) x10^3/uL Immature Gran # (Auto) 0.01 (0.00-0.03) x10^3u/L Absolute Lymphs (auto) 1.27 (1.0-4.6) x10^3/uL Absolute Monos (auto) 0.41 (0.0-1.3) x10^3/uL Absolute Nucleated RBC 0.00 (0.00-0.01) x10^3u/L Lymphocytes % 20.3 L (24.0-44.0) % Monocytes % 6.6 (0.0-12.0) % Eosinophils % 0.2 (0.00-5.0) % Basophils % 0.6 (0.0-0.4) % Absolute Granulocytes 4.51 (1.4-6.9) x10^3/uL Basophils # 0.04 (0-0.4) x10^3/uL Sodium 136 L (137-145) mmol/L Sodium Direct (138-146) mmol/L Potassium 3.7 (3.5-4.9) mmol/L Chloride 102 (98-109) mmol/L Carbon Dioxide 23 (24-29) mmol/L Anion Gap 15.7 H (5-15) MEQ/L BUN 24 H (7-17) mg/dL Venous BUN (8-26) mg/dL Creatinine 1.30 H (0.6-1.3) mg/dL Estimated GFR 42.9 ML/MIN Glucose 110 H (70-105) mg/dL POC Glucometer 133 H (74 to 106) mg/dL Hemoglobin A1c (4.5-6.0) % Calcium 8.8 (8.4-10.2) mg/dL Ionized Calcium (1.12-1.32) mmol/L Magnesium (1.6-2.3) mg/dL Total Bilirubin (0.2-1.3) mg/dL AST (14-36) U/L ALT (0-35) U/L Alkaline Phosphatase (38-126) U/L Troponin (0.00-0.03) ng/mL Troponin I (0.000-0.034) ng/mL Serum Total Protein (6.3-8.2) g/dL Albumin (3.5-5.0) g/dL Prealbumin 24.17 (17.6-36.0) mg/dL Procalcitonin (0.030-0.080) ng/mL Urinalys Dipstick Clnc Urine Color (YELLOW) Urine Appearance (CLEAR) Urine pH (5-6) Ur Specific [place] (1.005-1.025) POC Urine Protein Conf (Negative) Urine Ketones (NEGATIVE) Urine Nitrite (NEGATIVE) Urine Bilirubin (NEGATIVE) Urine Urobilinogen (0-1) mg/dL Urine Leukocytes (NEGATIVE) Urine WBC (Auto) (0-5) /HPF Urine RBC (Auto) (0-2) /HPF U Epithel Cells (Auto) (FEW) /HPF Urine Bacteria (Auto) (NEGATIVE) /HPF Urine RBC (0-5) Raul/ul Ur Culture Indicated? Urine Glucose (NEGATIVE) mg/dL Influenza Type A Ag (NEGATIVE) Influenza Type B Ag (NEGATIVE) RSV (PCR) (Negative) SARS-CoV-2 (PCR) (NEGATIVE) 07/06/22 07/06/22 07/06/22 Range/Units 05:20 07:59 12:04 WBC (4.0-10.5) x10^3/uL RBC (4.1-5.4) x10^6/uL Hgb (12.0-16.0) g/dL Hct (35-47) % MCV (78-100) fL MCH (26-32) pg MCHC (32-36) g/dL RDW (11.5-14.0) % Plt Count (150-450) x10^3/uL MPV (7.5-11.0) fL Gran % (36.0-66.0) % Immature Gran % (Auto) (0.00-0.4) % Nucleat RBC Rel Count (0.00-0.1) % Eos # (Auto) (0-0.5) x10^3/uL Immature Gran # (Auto) (0.00-0.03) x10^3u/L Absolute Lymphs (auto) (1.0-4.6) x10^3/uL Absolute Monos (auto) (0.0-1.3) x10^3/uL Absolute Nucleated RBC (0.00-0.01) x10^3u/L Lymphocytes % (24.0-44.0) % Monocytes % (0.0-12.0) % Eosinophils % (0.00-5.0) % Basophils % (0.0-0.4) % Absolute Granulocytes (1.4-6.9) x10^3/uL Basophils # (0-0.4) x10^3/uL Sodium 135 L (137-145) mmol/L Sodium Direct (138-146) mmol/L Potassium 3.9 (3.5-4.9) mmol/L Chloride 104 (98-109) mmol/L Carbon Dioxide 23 (24-29) mmol/L Anion Gap 11.5 (5-15) MEQ/L BUN 23 H (7-17) mg/dL Venous BUN (8-26) mg/dL Creatinine 1.61 H (0.6-1.3) mg/dL Estimated GFR 33.5 ML/MIN Glucose 141 H (70-105) mg/dL POC Glucometer 133 H 159 H (74 to 106) mg/dL Hemoglobin A1c (4.5-6.0) % Calcium 8.7 (8.4-10.2) mg/dL Ionized Calcium (1.12-1.32) mmol/L Magnesium (1.6-2.3) mg/dL Total Bilirubin 0.80 (0.2-1.3) mg/dL AST 26 (14-36) U/L ALT 18 (0-35) U/L Alkaline Phosphatase 111 (38-126) U/L Troponin (0.00-0.03) ng/mL Troponin I (0.000-0.034) ng/mL Serum Total Protein 6.8 (6.3-8.2) g/dL Albumin 3.7 (3.5-5.0) g/dL Prealbumin (17.6-36.0) mg/dL Procalcitonin (0.030-0.080) ng/mL Urinalys Dipstick Clnc Urine Color (YELLOW) Urine Appearance (CLEAR) Urine pH (5-6) Ur Specific [place] (1.005-1.025) POC Urine Protein Conf (Negative) Urine Ketones (NEGATIVE) Urine Nitrite (NEGATIVE) Urine Bilirubin (NEGATIVE) Urine Urobilinogen (0-1) mg/dL Urine Leukocytes (NEGATIVE) Urine WBC (Auto) (0-5) /HPF Urine RBC (Auto) (0-2) /HPF U Epithel Cells (Auto) (FEW) /HPF Urine Bacteria (Auto) (NEGATIVE) /HPF Urine RBC (0-5) Raul/ul Ur Culture Indicated? Urine Glucose (NEGATIVE) mg/dL Influenza Type A Ag (NEGATIVE) Influenza Type B Ag (NEGATIVE) RSV (PCR) (Negative) SARS-CoV-2 (PCR) (NEGATIVE) - Radiology Impressions Radiology Exams & Impressions: Radiology Procedures Category Date Time Status CHEST 1 VIEW (PORTABLE) Stat Exams 07/05/22 13:30 Completed HEAD WITHOUT CONTRAST [CT] Stat Exams 07/05/22 13:30 Completed Assessment/Plan (1) Acute UTI Current Visit: Yes Status: Acute Assessment & Plan: Chief Complaint Diagnosis Dizziness Allergies Allergy/AdvReac Type Severity Reaction Status Date / Time codeine Allergy Severe Shortness Verified 07/05/22 13:09 of Breath latex Allergy Intermediate Blisters Verified 07/05/22 13:09 Vital Signs (Last 24 hours) Temp Pulse Resp BP Pulse Ox 07/06/22 12:00 19 07/06/22 10:00 19 07/06/22 08:00 98.8 F 72 19 125/65 96 07/06/22 03:45 99.6 F 80 17 118/59 92 L 07/06/22 01:22 99.3 F 07/05/22 23:39 102.4 F 85 19 126/68 93 L 07/05/22 20:00 99.2 F 73 20 106/60 96 07/05/22 16:37 99.4 F 75 22 129/62 96 07/05/22 16:21 98 07/05/22 16:16 99.4 F 75 129/62 96 07/05/22 14:28 78 118/85 92 L Home Medications Medication Instructions Recorded Confirmed Last Taken Type Cyclobenzaprine HCl 10 mg 10 mg PO TIDPRN PRN 07/05/22 07/05/22 Unknown History [Cyclobenzaprine 10 MG] Current Medications Generic Name Dose Route Start Last Admin Trade Name Freq PRN Reason Stop Dose Admin Acetaminophen 650 mg 07/05/22 16:12 07/06/22 10:44 Acetaminophen 325 Mg Tablet PO 08/04/22 16:11 650 mg Q4H PRN PRN Administration PAIN AND/OR FEVER Famotidine 20 mg 07/05/22 22:00 07/06/22 10:32 Famotidine 20 Mg/1 Vial IV 08/04/22 21:59 20 mg Q12HT RUDOLPH Administration Guaifenesin/Dextromethorphan 5 ml 07/06/22 05:15 07/06/22 10:37 Guaifenesin/D-Methorphan Hb 118 Ml Syrup PO 08/05/22 05:14 5 ml Q4H PRN PRN Administration COUGH Sodium Chloride 1,000 mls @ 100 mls/hr 07/05/22 16:12 07/06/22 04:54 Sodium Chloride 0.9% 1000 Ml IV 08/04/22 16:11 100 mls/hr .Q10H RUDOLPH Administration Ceftriaxone Sodium/Dextrose 1 g in 50 mls @ 100 mls/hr 07/06/22 10:00 07/06/22 10:32 Rocephin 1 Gm-D5w 50 Ml Bag IV 07/09/22 09:59 100 mls/hr Q24H10 RUDOLPH Administration Insulin Human Lispro 0 unit 07/05/22 16:12 Insulin Lispro 1 Unit SQ 08/04/22 16:11 UD PRN HYPERGLYCEMIA Morphine Sulfate 2 mg 07/05/22 16:12 Morphine Sulfate 2 Mg/Ml Inj IV 07/10/22 16:11 Q4H PRN PRN PAIN Ondansetron HCl 4 mg 07/05/22 16:12 Ondansetron Hcl 4 Mg/2 Ml Vial IV 08/04/22 16:11 Q6H PRN PRN NAUSEA/VOMITING Discontinued Medications Generic Name Dose Route Start Last Admin Trade Name Scooter PRN Reason Stop Dose Admin Acetaminophen 975 mg 07/05/22 14:06 07/05/22 14:12 Acetaminophen 325 Mg Tablet PO 07/05/22 14:07 975 mg STAT STA Administration Acetaminophen Confirm 07/05/22 14:09 Acetaminophen 325 Mg Tablet Administered 07/05/22 14:10 Dose 975 mg .ROUTE .STK-MED ONE Albuterol/Ipratropium 3 ml 07/05/22 16:12 Ipratropium/Albuterol Sulfate 3 Ml Ampul.Neb IH 08/04/22 16:11 Q4HPRN PRN SHORTNESS OF BREATH/WHEEZING Sodium Chloride 1,000 mls @ 999 mls/hr 07/05/22 13:30 07/05/22 15:21 Sodium Chloride 0.9% 1000 Ml IV 07/05/22 14:30 Infused .Q1H1M STA Infusion Sodium Chloride Confirm 07/05/22 14:10 Sodium Chloride 0.9% 1000 Ml Administered 07/05/22 14:11 Dose 1,000 mls @ ud .ROUTE .STK-MED ONE Ceftriaxone Sodium/Dextrose 1 g in 50 mls @ 100 mls/hr 07/05/22 15:39 07/05 15:54 Rocephin 1 Gm-D5w 50 Ml Bag IV 07/05/22 16:08 100 ml/hr STAT STA 100 mls/hr Administration Ceftriaxone Sodium/Dextrose Confirm 07/05/22 15:52 Rocephin 1 Gm-D5w 50 Ml Bag Administered 07/05/22 15:53 Dose 1 g in 50 mls @ ud IV .STK-MED ONE Meclizine HCl 25 mg 07/05/22 13:30 07/05/22 14:11 Meclizine Hcl 25 Mg Tablet PO 07/05/22 13:31 25 mg STAT ONE Administration Meclizine HCl Confirm 07/05/22 14:09 Meclizine Hcl 25 Mg Tablet Administered 07/05/22 14:10 Dose 25 mg .ROUTE .STK-MED ONE Ondansetron HCl 4 mg 07/05/22 13:30 07/05/22 14:11 Ondansetron Hcl 4 Mg/2 Ml Vial IV 07/05/22 13:31 4 mg STAT ONE Administration Ondansetron HCl Confirm 07/05/22 14:09 Ondansetron Hcl 4 Mg/2 Ml Vial Administered 07/05/22 14:10 Dose 4 mg .ROUTE .STK-MED ONE Intake & Output (Last 24 hours) 07/04/22 07/05/22 07/06/22 07/07/22 11:59 11:59 11:59 11:59 Intake Total 1896 240 Output Total 300 Balance 1896 -60 Weight 94.6 kg Microbiology Results (Last 24 hours) 07/05/22 13:45 Blood Blood Culture Gram Stain - Pending 07/05/22 13:45 Blood Blood Culture - Pending 07/05/22 13:15 Blood Blood Culture Gram Stain - Pending 07/05/22 13:15 Blood Blood Culture - Pending 07/05/22 13:33 Urine, Void Urine Culture - Pending Laboratory Results (Last 24 hours) 07/06/22 07/06/22 07/06/22 12:04 07:59 05:20 WBC RBC Hgb Hct MCV MCH MCHC RDW Plt Count MPV Gran % Immature Gran % (Auto) Nucleat RBC Rel Count Eos # (Auto) Immature Gran # (Auto) Absolute Lymphs (auto) Absolute Monos (auto) Absolute Nucleated RBC Lymphocytes % Monocytes % Eosinophils % Basophils % Absolute Granulocytes Basophils # Sodium 135 L Sodium Direct Potassium 3.9 Chloride 104 Carbon Dioxide 23 Anion Gap 11.5 BUN 23 H Venous BUN Creatinine 1.61 H Estimated GFR 33.5 Glucose 141 H POC Glucometer 159 H 133 H Hemoglobin A1c Calcium 8.7 Ionized Calcium Magnesium Total Bilirubin 0.80 AST 26 ALT 18 Alkaline Phosphatase 111 Troponin Troponin I Serum Total Protein 6.8 Albumin 3.7 Prealbumin Procalcitonin Urinalys Dipstick Clnc Urine Color Urine Appearance Urine pH Ur Specific [place] POC Urine Protein Conf Urine Ketones Urine Nitrite Urine Bilirubin Urine Urobilinogen Urine Leukocytes Urine WBC (Auto) Urine RBC (Auto) U Epithel Cells (Auto) Urine Bacteria (Auto) Urine RBC Ur Culture Indicated? Urine Glucose Influenza Type A Ag Influenza Type B Ag RSV (PCR) SARS-CoV-2 (PCR) 07/06/22 07/05/22 07/05/22 05:20 20:54 18:00 WBC 6.3 RBC 3.45 L Hgb 10.0 L Hct 31.3 L MCV 90.7 MCH 29.0 MCHC 31.9 L RDW 13.2 Plt Count 150 MPV 10.8 Gran % 72.1 H Immature Gran % (Auto) 0.2 Nucleat RBC Rel Count 0.0 Eos # (Auto) 0.01 Immature Gran # (Auto) 0.01 Absolute Lymphs (auto) 1.27 Absolute Monos (auto) 0.41 Absolute Nucleated RBC 0.00 Lymphocytes % 20.3 L Monocytes % 6.6 Eosinophils % 0.2 Basophils % 0.6 Absolute Granulocytes 4.51 Basophils # 0.04 Sodium 136 L Sodium Direct Potassium 3.7 Chloride 102 Carbon Dioxide 23 Anion Gap 15.7 H BUN 24 H Venous BUN Creatinine 1.30 H Estimated GFR 42.9 Glucose 110 H POC Glucometer 133 H Hemoglobin A1c Calcium 8.8 Ionized Calcium Magnesium Total Bilirubin AST ALT Alkaline Phosphatase Troponin Troponin I Serum Total Protein Albumin Prealbumin 24.17 Procalcitonin Urinalys Dipstick Clnc Urine Color Urine Appearance Urine pH Ur Specific [place] POC Urine Protein Conf Urine Ketones Urine Nitrite Urine Bilirubin Urine Urobilinogen Urine Leukocytes Urine WBC (Auto) Urine RBC (Auto) U Epithel Cells (Auto) Urine Bacteria (Auto) Urine RBC Ur Culture Indicated? Urine Glucose Influenza Type A Ag Influenza Type B Ag RSV (PCR) SARS-CoV-2 (PCR) 07/05/22 07/05/22 07/05/22 18:00 18:00 17:15 WBC 6.7 RBC 3.76 L Hgb 10.9 L Hct 34.9 L MCV 92.8 MCH 29.0 MCHC 31.2 L RDW 13.0 Plt Count 147 L MPV 10.4 Gran % Immature Gran % (Auto) Nucleat RBC Rel Count Eos # (Auto) Immature Gran # (Auto) Absolute Lymphs (auto) Absolute Monos (auto) Absolute Nucleated RBC Lymphocytes % Monocytes % Eosinophils % Basophils % Absolute Granulocytes Basophils # Sodium Sodium Direct Potassium Chloride Carbon Dioxide Anion Gap BUN Venous BUN Creatinine Estimated GFR Glucose POC Glucometer 92 Hemoglobin A1c Calcium Ionized Calcium Magnesium Total Bilirubin AST ALT Alkaline Phosphatase Troponin Troponin I < 0.012 Serum Total Protein Albumin Prealbumin Procalcitonin Urinalys Dipstick Clnc Urine Color Urine Appearance Urine pH Ur Specific [place] POC Urine Protein Conf Urine Ketones Urine Nitrite Urine Bilirubin Urine Urobilinogen Urine Leukocytes Urine WBC (Auto) Urine RBC (Auto) U Epithel Cells (Auto) Urine Bacteria (Auto) Urine RBC Ur Culture Indicated? Urine Glucose Influenza Type A Ag Influenza Type B Ag RSV (PCR) SARS-CoV-2 (PCR) 07/05/22 07/05/22 07/05/22 13:45 13:33 13:15 WBC RBC Hgb Hct MCV MCH MCHC RDW Plt Count MPV Gran % Immature Gran % (Auto) Nucleat RBC Rel Count Eos # (Auto) Immature Gran # (Auto) Absolute Lymphs (auto) Absolute Monos (auto) Absolute Nucleated RBC Lymphocytes % Monocytes % Eosinophils % Basophils % Absolute Granulocytes Basophils # Sodium Sodium Direct Potassium Chloride Carbon Dioxide Anion Gap BUN Venous BUN Creatinine Estimated GFR Glucose POC Glucometer Hemoglobin A1c 6.95 H Calcium Ionized Calcium Magnesium Total Bilirubin AST ALT Alkaline Phosphatase Troponin Troponin I Serum Total Protein Albumin Prealbumin Procalcitonin Urinalys Dipstick Clnc MAIN LAB Urine Color YELLOW Urine Appearance CLEAR Urine pH 7.0 Ur Specific [place] 1.015 POC Urine Protein Conf NEGATIVE Urine Ketones NEGATIVE Urine Nitrite NEGATIVE Urine Bilirubin NEGATIVE Urine Urobilinogen 0.2 Urine Leukocytes NEGATIVE Urine WBC (Auto) 6-10 Urine RBC (Auto) 0-2 U Epithel Cells (Auto) RARE Urine Bacteria (Auto) NONE SEEN Urine RBC NEGATIVE Ur Culture Indicated? YES Urine Glucose >=1000 Influenza Type A Ag NEGATIVE Influenza Type B Ag NEGATIVE RSV (PCR) NEGATIVE SARS-CoV-2 (PCR) POSITIVE A 07/05/22 07/05/22 07/05/22 13:15 13:15 13:00 WBC 7.1 RBC 3.98 L Hgb 11.6 L Hct 35.9 MCV 90.2 MCH 29.1 MCHC 32.3 RDW 13.1 Plt Count 168 MPV 10.7 Gran % 78.2 H Immature Gran % (Auto) 0.3 Nucleat RBC Rel Count 0.0 Eos # (Auto) 0.03 Immature Gran # (Auto) 0.02 Absolute Lymphs (auto) 1.02 Absolute Monos (auto) 0.45 Absolute Nucleated RBC 0.00 Lymphocytes % 14.4 L Monocytes % 6.4 Eosinophils % 0.4 Basophils % 0.3 Absolute Granulocytes 5.54 Basophils # 0.02 Sodium Sodium Direct 137 L Potassium 3.8 Chloride 100 Carbon Dioxide 25 Anion Gap BUN Venous BUN 32 H Creatinine 1.6 H Estimated GFR Glucose 99 POC Glucometer Hemoglobin A1c Calcium Ionized Calcium 1.21 Magnesium Cancelled 1.9 Total Bilirubin AST ALT Alkaline Phosphatase Troponin 0.01 Troponin I Serum Total Protein Albumin Prealbumin Procalcitonin Cancelled 0.096 H Urinalys Dipstick Clnc Urine Color Urine Appearance Urine pH Ur Specific [place] POC Urine Protein Conf Urine Ketones Urine Nitrite Urine Bilirubin Urine Urobilinogen Urine Leukocytes Urine WBC (Auto) Urine RBC (Auto) U Epithel Cells (Auto) Urine Bacteria (Auto) Urine RBC Ur Culture Indicated? Urine Glucose Influenza Type A Ag Influenza Type B Ag RSV (PCR) SARS-CoV-2 (PCR) Orders (Last 24 hours) Category Date Time Status Bedrest ROUTINE Activity 07/05/22 16:12 Active Up With Assistance ROUTINE Activity 07/05/22 16:12 Active Code Status Order ROUTINE Care 07/05/22 16:12 Active Fall Protocol Q1H Care 07/05/22 16:12 Active IV Care Q6H Care 07/05/22 16:12 Active IV Insertion STAT Care 07/05/22 13:32 Completed Isolation, Initiate & Maintain Q6H Care 07/05/22 16:09 Active Neuro Checks Q4H Care 07/05/22 16:12 Active POCT Glucose Check ACHS Care 07/05/22 16:[address] in Observation ROUTINE Care 07/05/22 16:[address] in Observation ROUTINE Care 07/05/22 16:25 Completed Stefano Romeo ROUTINE Care 07/05/22 16:12 Active Consistent Carbohydrate Diet 1800 Calorie Diet 07/05/22 Dinner Active CHEST 1 VIEW (PORTABLE) Stat Exams 07/05/22 13:30 Completed HEAD WITHOUT CONTRAST [CT] Stat Exams 07/05/22 13:30 Completed BLOOD CULTURE Stat Lab 07/05/22 13:45 Received BMP Routine Lab 07/05/22 18:00 Completed CBC Routine Lab 07/05/22 18:00 Completed CBC W DIFF AM.LAB Lab 07/06/22 05:20 Completed CBC W DIFF Stat Lab 07/05/22 13:15 Completed CMP AM.LAB Lab 07/06/22 05:20 Completed COVID/FLU/RSV Panel Stat Lab 07/05/22 13:45 Completed CULTURE,URINE Stat Lab 07/05/22 13:33 Received HEMOGLOBIN A1C Urgent Lab 07/05/22 13:15 Completed Lactic Acid Stat Lab 07/05/22 13:30 Completed POCT GLUCOSE Stat Lab 07/05/22 17:15 Completed POCT GLUCOSE Stat Lab 07/05/22 20:54 Completed POCT GLUCOSE Stat Lab 07/06/22 07:59 Completed POCT GLUCOSE Stat Lab 07/06/22 12:04 Completed PREALBUMIN Routine Lab 07/05/22 18:00 Completed TROPONIN Q4H Lab 07/05/22 18:00 Completed UA W/RFX CULTURE Stat Lab 07/05/22 13:33 Completed Acetaminophen 325 mg [Tylenol 325 mg] Med 07/05/22 16:12 Active 650 mg PO Q4H PRN PRN Acetaminophen 325 mg [Tylenol 325 mg] Med 07/05/22 14:09 Discontinued 975 mg .ROUTE .STK-MED ONE Acetaminophen 325 mg [Tylenol 325 mg] Med 07/05/22 14:06 Discontinued 975 mg PO STAT STA Albuterol/Ipratropium 3ml Neb* [DUONEB 0.5-3 MG/3 ml Med 07/05/22 16:12 Discontinued Neb] 3 ml IH Q4HPRN PRN Ceftriaxone 1 GM/50 ML PREMIX* [ROCEPHIN 1 Gm-D5w 50 ml Med 07/06/22 10:00 Active Bag] 1 g in 50 ml IV Q24H10 Ceftriaxone 1 GM/50 ML PREMIX* [ROCEPHIN 1 Gm-D5w 50 ml Med 07/05/22 15:39 Discontinued Bag] 1 g in 50 ml IV STAT Ceftriaxone 1 GM/50 ML PREMIX* [ROCEPHIN 1 Gm-D5w 50 ml Med 07/05/22 15:52 Discontinued Bag] 1 g in 50 ml IV UD Famotidine 20 mg Vial [Pepcid 20 MG VIAL] Med 07/05/22 22:00 Active 20 mg IV Q12HT Guaifenesin/D-Methorphan Hb [Robitussin-Dm Syrup] Med 07/06/22 05:15 Active 5 ml PO Q4H PRN PRN Insulin Lispro [Humalog] Med 07/05/22 16:12 Active See Dose Instructions SQ UD PRN Meclizine HCl 25 mg [Antivert 25 mg] Med 07/05/22 14:09 Discontinued 25 mg .ROUTE .STK-MED ONE Meclizine HCl 25 mg [Antivert 25 mg] Med 07/05/22 13:30 Discontinued 25 mg PO STAT ONE Morphine Sulfate 2 mg Inj Med 07/05/22 16:12 Active 2 mg IV Q4H PRN PRN NaCl 0.9% 1000 ml [Sodium Chloride 0.9% 1000 ML] 1,000 Med 07/05/22 14:10 Disc ontinued ml .ROUTE UD NaCl 0.9% 1000 ml [Sodium Chloride 0.9% 1000 ML] 1,000 Med 07/05/22 16:12 Active ml IV 100 mls/hr NaCl 0.9% 1000 ml [Sodium Chloride 0.9% 1000 ML] 1,000 Med 07/05/22 13:30 Discontinued ml IV 999 mls/hr Ondansetron HCl 4 mg/2 ml [Zofran 4 MG/2 ML VIAL] Med 07/05/22 14:09 Discontinued 4 mg .ROUTE .STK-MED ONE Ondansetron HCl 4 mg/2 ml [Zofran 4 MG/2 ML VIAL] Med 07/05/22 16:12 Active 4 mg IV Q6H PRN PRN Ondansetron HCl 4 mg/2 ml [Zofran 4 MG/2 ML VIAL] Med 07/05/22 13:30 Discontinued 4 mg IV STAT ONE Code(s): N39.0 - URINARY TRACT INFECTION, SITE NOT SPECIFIED (2) COVID-19 virus detected Current Visit: Yes Status: Acute Code(s): U07.1 - COVID-19 (3) Dizziness Current Visit: Yes Status: Acute Code(s): R42 - DIZZINESS AND GIDDINESS (4) Viral syndrome Current Visit: Yes Status: Acute
[2022-07-06] MEDS ORDERED: Cyclobenzaprine 10 MG PO PRN (15:31)
[2022-07-06] MEDS ORDERED: MEDICATION INTERVENTION MC SCH (15:45)
[2022-07-06] MEDS: SYNTHROID 25 MCG PO SCH (16:41)
[2022-07-06] MEDS: Singulair 10 MG PO SCH (16:41)
[2022-07-06] MEDS: Cozaar 50 MG PO SCH (16:41)
[2022-07-06] MEDS: hydroDIURIL 25 MG PO SCH (16:41)
[2022-07-06] MEDS: Glucotrol Xl 2.5 MG PO SCH (16:41)
[2022-07-06] MEDS: Protonix 40MG Tablet PO SCH (16:41)
[2022-07-06] MEDS: Glucophage 850 MG PO SCH (16:41)
[2022-07-06] MEDS ORDERED: ZOCOR 20MG PO SCH (22:00)
[2022-07-07] MEDS: Sodium Chloride 0.9% 1000 ML 1,000 ML IV SCH (02:21)
[2022-07-07] MEDS: TYLENOL 325 MG PO PRN (05:50)
[2022-07-07 06:46] LABS: Absolute Neutrophil Ct (ANC) 2.41 x10^3/uL (1.4-6.9); Basophil (Absolute #) 0.02 x10^3/uL (0-0.4); Eosinophil (Absolute #) 0.13 x10^3/uL (0-0.5); Hematocrit 31.3 % (35-47); Hemoglobin 9.8 g/dL (12.0-16.0); Lymphocyte (Absolute #) 1.32 x10^3/uL (1.0-4.6); Lymphocytes % 30.1 % (24.0-44.0); Mean Cell Volume 93.4 fL (78-100); Mean Corpuscular Hemoglobin 29.3 pg (26-32); Mean Corpuscular Hgb Concent. 31.3 g/dL (32-36); Mean Platelet Volume 11.2 fL (7.5-11.0); Monocytes % 11.4 % (0.0-12.0); Neutrophil % 54.8 % (36.0-66.0); Platelet Count 107 x10^3/uL (150-450); Red Blood Count 3.35 x10^6/uL (4.1-5.4); Red Cell Distribution Width 13.2 % (11.5-14.0); White Blood Count 4.4 x10^3/uL (4.0-10.5)
[2022-07-07 06:55] LABS: ALBUMIN 3.6 g/dL (3.5-5.0); ANION GAP 10.7 MEQ/L (5-15); BILIRUBIN,TOTAL 0.4 mg/dL (0.2-1.3); Calcium 8.4 mg/dL (8.4-10.2); Creatinine 1 1.49 mg/dL (0.52-1.04); EST GLOMERULAR FILTRATION RATE 36.7 ML/MIN; Potassium 3.7 mmol/L (3.5-5.1); Total Protein 6.7 g/dL (6.3-8.2)
[2022-07-07 07:12] VITALS: O2SAT 97
[2022-07-07] MEDS: Glucophage 850 MG PO SCH (08:43)
--- NOTE | 2022-07-07 08:57 | PCM.DS ---
Discharge Summary Date of Admission: 07/05/22 16:09 Admitting Physician: GUTIERREZ COOLEY Primary Care Provider: GUTIERREZ COOLEY Allergies Allergies codeine Allergy (Severe, Verified 07/05/22 13:09) Shortness of Breath latex Allergy (Intermediate, Verified 07/05/22 13:09) Blisters Hospital Summary - Hospital Course Hospital Course: Chief Complaint Diagnosis Dizziness for 1-2 days Allergies Allergy/AdvReac Type Severity Reaction Status Date / Time codeine Allergy Severe Shortness Verified 07/05/22 13:09 of Breath latex Allergy Intermediate Blisters Verified 07/05/22 13:09 Vital Signs (Last 24 hours) Temp Pulse Resp BP Pulse Ox 07/07/22 07:10 98.3 F 64 16 106/57 97 07/07/22 04:00 98.7 F 71 19 117/64 94 L 07/07/22 00:00 98.9 F 07/06/22 18:00 98.5 F 79 20 102/59 97 07/06/22 16:00 21 07/06/22 14:00 21 07/06/22 12:00 98.7 F 71 21 107/65 96 07/06/22 10:00 19 Home Medications Medication Instructions Recorded Confirmed Last Taken Type Cyclobenzaprine HCl 10 mg 10 mg PO TIDPRN PRN 07/05/22 07/05/22 Unknown History [Cyclobenzaprine 10 MG] Current Medications Generic Name Dose Route Start Last Admin Trade Name Freq PRN Reason Stop Dose Admin Acetaminophen 650 mg 07/05/22 16:12 07/07/22 05:50 Acetaminophen 325 Mg Tablet PO 08/04/22 16:11 650 mg Q4H PRN PRN Administration PAIN AND/OR FEVER Cyclobenzaprine HCl 10 mg 07/06/22 15:31 Cyclobenzaprine Hcl 10 Mg Tablet PO 08/05/22 15:30 TIDPRN PRN MUSCLE SPASMS Famotidine 20 mg 07/05/22 22:00 07/06/22 21:02 Famotidine 20 Mg/1 Vial IV 08/04/22 21:59 20 mg Q12HT RUDOLPH Administration Glipizide 5 mg 07/06/22 15:45 07/06/22 16:41 Glipizide 2.5 Mg Xl Tablet PO 08/05/22 15:44 5 mg DAILY RUDOLPH Administration Guaifenesin/Dextromethorphan 5 ml 07/06/22 05:15 07/06/22 10:37 Guaifenesin/D-Methorphan Hb 118 Ml Syrup PO 08/05/22 05:14 5 ml Q4H PRN PRN Administration COUGH Hydrochlorothiazide 12.5 mg 07/06/22 15:45 07/06/22 16:41 Hydrochlorothiazide 25 Mg Tablet PO 08/05/22 15:44 Not Given DAILY RUDOLPH Sodium Chloride 1,000 mls @ 100 mls/hr 07/05/22 16:12 07/07/22 02:21 Sodium Chloride 0.9% 1000 Ml IV 08/04/22 16:11 100 mls/hr .Q10H RUDOLPH Administration Ceftriaxone Sodium/Dextrose 1 g in 50 mls @ 100 mls/hr 07/06/22 10:00 07/06/22 10:32 Rocephin 1 Gm-D5w 50 Ml Bag IV 07/09/22 09:59 100 mls/hr Q24H10 RUDOLPH Administration Insulin Human Lispro 0 unit 07/05/22 16:12 Insulin Lispro 1 Unit SQ 08/04/22 16:11 UD PRN HYPERGLYCEMIA Levothyroxine Sodium 25 mcg 07/06/22 15:45 07/06/22 16:41 Levothyroxine Sodium 25 Mcg Tablet PO 08/05/22 15:44 25 mcg DAILY RUDOLPH Administration Losartan Potassium 50 mg 07/06/22 15:45 07/06/22 16:41 Losartan Potassium 50 Mg Tablet PO 08/05/22 15:44 Not Given DAILY RUDOLPH Metformin HCl 850 mg 07/06/22 17:00 07/07/22 08:43 Metformin Hcl 850 Mg Tablet PO 08/05/22 16:59 850 mg BIDWMEALS RUDOLPH Administration Miscellaneous Information 0 each 07/06/22 15:45 Medication Intervention 1 Each Each 08/05/22 15:44 .RN TO CHECK WITH SD RUDOLPH Montelukast Sodium 10 mg 07/06/22 15:45 07/06/22 16:41 Montelukast Sodium 10 Mg Tablet PO 08/05/22 15:44 10 mg DAILY RUDOLPH Administration Morphine Sulfate 2 mg 07/05/22 16:12 Morphine Sulfate 2 Mg/Ml Inj IV 07/10/22 16:11 Q4H PRN PRN PAIN Ondansetron HCl 4 mg 07/05/22 16:12 Ondansetron Hcl 4 Mg/2 Ml Vial IV 08/04/22 16:11 Q6H PRN PRN NAUSEA/VOMITING Pantoprazole Sodium 40 mg 07/06/22 15:45 07/06/22 16:41 Protonix (Pantoprazole) 40 Mg Tablet PO 08/05/22 15:44 40 mg DAILY RUDOLPH Administration Simvastatin 40 mg 07/06/22 22:00 07/06/22 21:02 Simvastatin 20 Mg Tablet PO 08/05/22 21:59 40 mg HS RUDOLPH Administration Discontinued Medications Generic Name Dose Route Start Last Admin Trade Name Freq PRN Reason Stop Dose Admin Acetaminophen 975 mg 07/05/22 14:06 07/05/22 14:12 Acetaminophen 325 Mg Tablet PO 07/05/22 14:07 975 mg STAT STA Administration Acetaminophen Confirm 07/05/22 14:09 Acetaminophen 325 Mg Tablet Administered 07/05/22 14:10 Dose 975 mg .ROUTE .STK-MED ONE Albuterol/Ipratropium 3 ml 07/05/22 16:12 Ipratropium/Albuterol Sulfate 3 Ml Ampul.Neb IH 08/04/22 16:11 Q4HPRN PRN SHORTNESS OF BREATH/WHEEZING Sodium Chloride 1,000 mls @ 999 mls/hr 07/05/22 13:30 07/05/22 15:21 Sodium Chloride 0.9% 1000 Ml IV 07/05/22 14:30 Infused .Q1H1M STA Infusion Sodium Chloride Confirm 07/05/22 14:10 Sodium Chloride 0.9% 1000 Ml Administered 07/05/22 14:11 Dose 1,000 mls @ ud .ROUTE .STK-MED ONE Ceftriaxone Sodium/Dextrose 1 g in 50 mls @ 100 mls/hr 07/05/22 15:39 07/05/22 15:54 Rocephin 1 Gm-D5w 50 Ml Bag IV 07/05/22 16:08 100 ml/hr STAT STA 100 mls/hr Administration Ceftriaxone Sodium/Dextrose Confirm 07/05/22 15:52 Rocephin 1 Gm-D5w 50 Ml Bag Administered 07/05/22 15:53 Dose 1 g in 50 mls @ ud IV .STK-MED ONE Meclizine HCl 25 mg 07/05/22 13:30 07/05/22 14:11 Meclizine Hcl 25 Mg Tablet PO 07/05/22 13:31 25 mg STAT ONE Administration Meclizine HCl Confirm 07/05/22 14:09 Meclizine Hcl 25 Mg Tablet Administered 07/05/22 14:10 Dose 25 mg .ROUTE .STK-MED ONE Ondansetron HCl 4 mg 07/05/22 13:30 07/05/22 14:11 Ondansetron Hcl 4 Mg/2 Ml Vial IV 07/05/22 13:31 4 mg STAT ONE Administration Ondansetron HCl Confirm 07/05/22 14:09 Ondansetron Hcl 4 Mg/2 Ml Vial Administered 07/05/22 14:10 Dose 4 mg .ROUTE .STK-MED ONE Intake & Output (Last 24 hours) 07/04/22 07/05/22 07/06/22 07/07/22 11:59 11:59 11:59 11:59 Intake Total 1896 4180 Output Total 600 Balance 1896 3580 Weight 94.6 kg Microbiology Results (Last 24 hours) 07/05/22 13:45 Blood Blood Culture Gram Stain - Final Not Reportable 07/05/22 13:45 Blood Blood Culture - Preliminary NO GROWTH TO DATE 07/05/22 13:15 Blood Blood Culture Gram Stain - Final Not Reportable 07/05/22 13:15 Blood Blood Culture - Preliminary NO GROWTH TO DATE Laboratory Results (Last 24 hours) 07/07/22 07/07/22 07/07/22 07:39 05:25 05:25 WBC 4.4 RBC 3.35 L Hgb 9.8 L Hct 31.3 L MCV 93.4 MCH 29.3 MCHC 31.3 L RDW 13.2 Plt Count 107 L MPV 11.2 H Gran % 54.8 Immature Gran % (Auto) 0.2 Nucleat RBC Rel Count 0.0 Eos # (Auto) 0.13 Immature Gran # (Auto) 0.01 Absolute Lymphs (auto) 1.32 Absolute Monos (auto) 0.50 Absolute Nucleated RBC 0.00 Lymphocytes % 30.1 Monocytes % 11.4 Eosinophils % 3.0 Basophils % 0.5 Absolute Granulocytes 2.41 Basophils # 0.02 Sodium 138 Potassium 3.7 Chloride 106 Carbon Dioxide 25 Anion Gap 10.7 BUN 21 H Creatinine 1.49 H Estimated GFR 36.7 Glucose 87 POC Glucometer 94 Calcium 8.4 Total Bilirubin 0.40 AST 62 H ALT 50 H Alkaline Phosphatase 123 Serum Total Protein 6.7 Albumin 3.6 07/06/22 07/06/22 07/06/22 20:41 16:21 12:04 WBC RBC Hgb Hct MCV MCH MCHC RDW Plt Count MPV Gran % Immature Gran % (Auto) Nucleat RBC Rel Count Eos # (Auto) Immature Gran # (Auto) Absolute Lymphs (auto) Absolute Monos (auto) Absolute Nucleated RBC Lymphocytes % Monocytes % Eosinophils % Basophils % Absolute Granulocytes Basophils # Sodium Potassium Chloride Carbon Dioxide Anion Gap BUN Creatinine Estimated GFR Glucose POC Glucometer 150 H 156 H 159 H Calcium Total Bilirubin AST ALT Alkaline Phosphatase Serum Total Protein Albumin Orders (Last 24 hours) Category Date Time Status CBC W DIFF AM.LAB Lab 07/07/22 05:25 Completed CMP AM.LAB Lab 07/07/22 05:25 Completed POCT GLUCOSE Stat Lab 07/06/22 07:59 Completed POCT GLUCOSE Stat Lab 07/06/22 12:04 Completed POCT GLUCOSE Stat Lab 07/06/22 16:21 Completed POCT GLUCOSE Stat Lab 07/06/22 20:41 Completed POCT GLUCOSE Stat Lab 07/07/22 07:39 Completed Ceftriaxone 1 GM/50 ML PREMIX* [ROCEPHIN 1 Gm-D5w 50 ml Med 07/06/22 10:00 Active Bag] 1 g in 50 ml IV Q24H10 Cyclobenzaprine HCl 10 mg [Cyclobenzaprine 10 MG] Med 07/06/22 15:31 Active 10 mg PO TIDPRN PRN Glipizide 2.5 mg [Glucotrol Xl 2.5 MG] Med 07/06/22 15:45 Active 5 mg PO DAILY Hydrochlorothiazide 25 mg [hydroDIURIL 25 MG] Med 07/06/22 15:45 Active 12.5 mg PO DAILY Levothyroxine Sodium 25 Mcg [Synthroid 25 Mcg] Med 07/06/22 15:45 Active 25 mcg PO DAILY Losartan Potassium 50 mg [Cozaar 50 MG] Med 07/06/22 15:45 Active 50 mg PO DAILY Medication Intervention Med 07/06/22 15:45 Active See Dose Instructions MC .RN TO CHECK WITH SD Metformin HCl 850 mg [Glucophage 850 MG] Med 07/06/22 17:00 Active 850 mg PO BIDWMEALS Montelukast Sodium 10 mg [Singulair 10 MG] Med 07/06/22 15:45 Active 10 mg PO DAILY PANTOPRAZOLE 40 mg Tablet [Protonix 40MG Tablet] Med 07/06/22 15:45 Active 40 mg PO DAILY Simvastatin 20Mg [Zocor 20Mg] Med 07/06/22 22:00 Active 40 mg PO HS - Vitals & Intake/Output Vital Signs: Vital Signs Temperature 98.3 F 07/07/22 07:10 Pulse Rate 64 07/07/22 07:10 Respiratory Rate 16 07/07/22 07:10 Blood Pressure 106/57 07/07/22 07:10 O2 Sat by Pulse Oximetry 97 07/07/22 07:10 Intake & Output: Intake & Output 07/04/22 07/05/22 07/06/22 07/07/22 11:59 11:59 11:59 11:59 Intake Total 1896 4180 Output Total 600 Balance 1896 3580 Weight 94.6 kg - Lab Result Diagrams: 07/07/22 05:25 07/07/22 05:25 Lab Results-Last 24 Hrs: Lab Results-Last 24 Hours 07/06/22 07/06/22 07/06/22 Range/Units 12:04 16:21 20:41 WBC (4.0-10.5) x10^3/uL RBC (4.1-5.4) x10^6/uL Hgb (12.0-16.0) g/dL Hct (35-47) % MCV (78-100) fL MCH (26-32) pg MCHC (32-36) g/dL RDW (11.5-14.0) % Plt Count (150-450) x10^3/uL MPV (7.5-11.0) fL Gran % (36.0-66.0) % Immature Gran % (Auto) (0.00-0.4) % Nucleat RBC Rel Count (0.00-0.1) % Eos # (Auto) (0-0.5) x10^3/uL Immature Gran # (Auto) (0.00-0.03) x10^3u/L Absolute Lymphs (auto) (1.0-4.6) x10^3/uL Absolute Monos (auto) (0.0-1.3) x10^3/uL Absolute Nucleated RBC (0.00-0.01) x10^3u/L Lymphocytes % (24.0-44.0) % Monocytes % (0.0-12.0) % Eosinophils % (0.00-5.0) % Basophils % (0.0-0.4) % Absolute Granulocytes (1.4-6.9) x10^3/uL Basophils # (0-0.4) x10^3/uL Sodium (137-145) mmol/L Potassium (3.5-5.1) mmol/L Chloride (98-107) mmol/L Carbon Dioxide (22-30) mmol/L Anion Gap (5-15) MEQ/L BUN (7-17) mg/dL Creatinine (0.52-1.04) mg/dL Estimated GFR ML/MIN Glucose (74-106) mg/dL POC Glucometer 159 H 156 H 150 H (74 to 106) mg/dL Calcium (8.4-10.2) mg/dL Total Bilirubin (0.2-1.3) mg/dL AST (14-36) U/L ALT (0-35) U/L Alkaline Phosphatase (38-126) U/L Serum Total Protein (6.3-8.2) g/dL Albumin (3.5-5.0) g/dL 07/07/22 07/07/22 07/07/22 Range/Units 05:25 05:25 07:39 WBC 4.4 (4.0-10.5) x10^3/uL RBC 3.35 L (4.1-5.4) x10^6/uL Hgb 9.8 L (12.0-16.0) g/dL Hct 31.3 L (35-47) % MCV 93.4 (78-100) fL MCH 29.3 (26-32) pg MCHC 31.3 L (32-36) g/dL RDW 13.2 (11.5-14.0) % Plt Count 107 L (150-450) x10^3/uL MPV 11.2 H (7.5-11.0) fL Gran % 54.8 (36.0-66.0) % Immature Gran % (Auto) 0.2 (0.00-0.4) % Nucleat RBC Rel Count 0.0 (0.00-0.1) % Eos # (Auto) 0.13 (0-0.5) x10^3/uL Immature Gran # (Auto) 0.01 (0.00-0.03) x10^3u/L Absolute Lymphs (auto) 1.32 (1.0-4.6) x10^3/uL Absolute Monos (auto) 0.50 (0.0-1.3) x10^3/uL Absolute Nucleated RBC 0.00 (0.00-0.01) x10^3u/L Lymphocytes % 30.1 (24.0-44.0) % Monocytes % 11.4 (0.0-12.0) % Eosinophils % 3.0 (0.00-5.0) % Basophils % 0.5 (0.0-0.4) % Absolute Granulocytes 2.41 (1.4-6.9) x10^3/uL Basophils # 0.02 (0-0.4) x10^3/uL Sodium 138 (137-145) mmol/L Potassium 3.7 (3.5-5.1) mmol/L Chloride 106 (98-107) mmol/L Carbon Dioxide 25 (22-30) mmol/L Anion Gap 10.7 (5-15) MEQ/L BUN 21 H (7-17) mg/dL Creatinine 1.49 H (0.52-1.04) mg/dL Estimated GFR 36.7 ML/MIN Glucose 87 (74-106) mg/dL POC Glucometer 94 (74 to 106) mg/dL Calcium 8.4 (8.4-10.2) mg/dL Total Bilirubin 0.40 (0.2-1.3) mg/dL AST 62 H (14-36) U/L ALT 50 H (0-35) U/L Alkaline Phosphatase 123 (38-126) U/L Serum Total Protein 6.7 (6.3-8.2) g/dL Albumin 3.6 (3.5-5.0) g/dL Micro Results-Entire Visit: Microbiology 07/05/22 13:45 Blood Culture Gram Stain - Final Blood Not Reportable Blood Culture - Preliminary NO GROWTH TO DATE 07/05/22 13:15 Blood Culture Gram Stain - Final Blood Not Reportable Blood Culture - Preliminary NO GROWTH TO DATE Accuchecks Date 07/07/22 Date 07/06/22 Time 07:49 Time 21:00 - Radiology Exams Ordered Rad Exams-Entire Visit: Radiology Procedures Category Date Time Status CHEST 1 VIEW (PORTABLE) Stat Exams 07/05/22 13:30 Completed HEAD WITHOUT CONTRAST [CT] Stat Exams 07/05/22 13:30 Completed Discharge Exam General Appearance: no apparent distress, alert Neurologic Exam: alert, oriented x 3, cooperative, normal mood/affect, nml cerebellar function, sensation nml, No motor deficits Eye Exam: PERRL, EOMI, eyes nml inspection Ears, Nose, Throat Exam: normal ENT inspection, pharynx normal, moist mucous membranes Neck Exam: normal inspection, non-tender, supple, full range of motion Respiratory Exam: normal breath sounds, lungs clear, No respiratory distress Cardiovascular Exam: regular rate/rhythm, normal heart sounds Gastrointestinal/Abdomen Exam: soft, No tenderness, No mass Pelvic Exam: deferred Rectal Exam: deferred Back Exam: normal inspection, normal range of motion, No CVA tenderness, No vertebral tenderness Extremity Exam: normal inspection, normal range of motion Skin Exam: normal color, warm, dry Final Diagnosis/Problem List - Final Discharge Diagnosis/Problem (1) COVID-19 virus detected Current Visit: Yes Status: Acute Code(s): U07.1 - COVID-19 (2) Acute UTI Current Visit: Yes Status: Resolved Code(s): N39.0 - URINARY TRACT INFECTION, SITE NOT SPECIFIED (3) Dizziness Current Visit: Yes Status: Resolved Code(s): R42 - DIZZINESS AND GIDDINESS (4) Viral syndrome Current Visit: Yes Status: Resolved - Discharge Discharge Date: 07/07/22 Disposition: Home, Self-Care Condition: Stable Prescriptions: No Action hydroCHLOROthiazide [Hydrochlorothiazide] 12.5 mg PO DAILY Omeprazole 20 mg PO DAILY Montelukast Sodium 10 mg [Singulair 10 MG] 10 mg PO DAILY Metformin HCl 850 mg [Glucophage 850 MG] 850 mg PO BID Losartan Potassium 50 mg [Cozaar 50 MG] 50 mg PO DAILY Levothyroxine Sodium [Levothyroxine] 25 mcg PO DAILY Glipizide [Glipizide ER] 5 mg PO DAILY Dapagliflozin Propanediol [Farxiga] 5 mg PO DAILY Atorvastatin Calcium 40 mg PO DAILY Cyclobenzaprine HCl 10 mg [Cyclobenzaprine 10 MG] 10 mg PO TIDPRN PRN PRN Reason: Muscle Spasms Follow up with: GUTIERREZ COOLEY [Primary Care Provider] - 5 Days
[2022-07-07] MEDS ORDERED: NON-FORMULARY ITEM (Dapagliflozin Propanediol [Farxiga] 10 MG Tablet) PO SCH (10:00)
[2022-07-07] MEDS ORDERED: NON-FORMULARY ITEM (Levothyroxine Sodium [Levothyroxine] 25 MCG Capsule) PO SCH (10:00)
[2022-07-07] MEDS ORDERED: NON-FORMULARY ITEM (Omeprazole [Omeprazole] 20 MG Tab.Rap.Dr) PO SCH (10:00)
[2022-07-07] MEDS ORDERED: NON-FORMULARY ITEM (Hydrochlorothiazide [Hydrochlorothiazide] 12.5 MG Tablet) PO SCH (10:00)
[2022-07-07] MEDS ORDERED: LIPITOR 40MG PO SCH (10:00)
[2022-07-07] MEDS ORDERED: NON-FORMULARY ITEM (Glipizide [Glipizide Er] 5 MG Tab.Er.24) PO SCH (10:00)
[2022-07-07] MEDS: ROCEPHIN 1 Gm-D5w 50 ml Bag** 1 G/50 ML IVPB IV SCH (10:05)
[2022-07-07] MEDS: Singulair 10 MG PO SCH (10:07)
[2022-07-07] MEDS: Glucotrol Xl 2.5 MG PO SCH (10:07)
[2022-07-07] MEDS: Pepcid 20 MG VIAL IV SCH (10:07)
[2022-07-07] MEDS: SYNTHROID 25 MCG PO SCH (10:07)
[2022-07-07] MEDS: Cozaar 50 MG PO SCH (10:08)
[2022-07-07] MEDS: hydroDIURIL 25 MG PO SCH (10:08)
[2022-07-07] MEDS: Protonix 40MG Tablet PO SCH (10:09)
[2022-07-07 11:53] VITALS: BP 125/58; PULSE 85
== END 2022-07-07 12:55 | disposition home or self-care (01) ==
LOC: ED 12:56 → MED SURG 16:09
PROVIDERS: ADMIT Family Medicine; ATTEND Family Medicine
DX: U07.1 COVID-19 (principal); N39.0 Urinary tract infection, site not specified; R42 Dizziness and giddiness; I10 Essential (primary) hypertension; E11.9 Type 2 diabetes mellitus without complications; E78.00 Pure hypercholesterolemia, unspecified; Z79.899 Other long term (current) drug therapy; Z20.828 Contact with and (suspected) exposure to other viral communicable diseases
CPT/HCPCS: 0241U; 36000; 36415; 70450; 71045; 80047; 80048; 80053; 81015; 82947; 83036; 83605; 83735; 84134; 84145; 84484; 85025; 85027; 87040; 87086; 93268; 96360; 96374; 99285; G0378; J0696; J2405; A9270-GY

== ENCOUNTER 2023-02-02 19:54 | Emergency (ER) | payer MEDICARE, OTHER ==
[2023-02-02] MEDS ORDERED: XYLOCAINE 1% HCL 20 ML MDV IJ ONE (19:55)
[2023-02-02] MEDS ORDERED: TYLENOL 325 MG PO ONE (20:26)
[2023-02-02] MEDS ORDERED: TORAdol 30 mg Injection IM ONE (20:26)
[2023-02-02] MEDS ORDERED: ZOFRAN ODT 4 MG PO ONE (20:26)
--- NOTE | 2023-02-02 20:30 | ERPHSYRPT ---
- History of Present Illness Time Seen by Provider: 02/02/23 20:29 Source: patient Exam Limitations: no limitations Patient Subjective Stated Complaint: pt states "Last friday, all my grandkids were staying over and were sleeping on my side of the bed. I went to get up and use the bathroom and tripped over my grandson and hit my leg and hip on a wall." Triage Nursing Assessment: pt able to ambulate to bed by self, pt alert and oriented x3, pt c/o L hip, knee, and lower leg pain d/t fall last friday, bilateral pedal pulses +2, tenderness in L hip area, no deformities noted Physician History: Patient presents w/ left hip and knee pain after a fall last week. Pt c/o pain involving the lateral aspect of the left hip Worsens while standing up. Patient also reports anterior leg pain w/ swelling over tibia No hx of blood clots No recent travel or surgery Method of Injury: fell Occurred: last week Quality: intermittent, sharpness Severity of Pain-Max: moderate Severity of Pain-Current: moderate Lower Extremities Pain: hip: left, leg: left Modifying Factors: Improves With: rest. Worsens With: movement Allergies/Adverse Reactions: codeine Allergy (Severe, Verified 07/05/22 13:09) Shortness of Breath latex Allergy (Intermediate, Verified 07/05/22 13:09) Blisters acetaminophen [From Vicodin] Adverse Reaction (Intermediate, Verified 02/02/23 20:08) Shortness of Breath hydrocodone [From Vicodin] Adverse Reaction (Intermediate, Verified 02/02/23 20:08) Shortness of Breath Home Medications: Atorvastatin Calcium 40 mg PO DAILY 05/13/22 [History] Dapagliflozin Propanediol [Farxiga] 10 mg PO DAILY 05/13/22 [History] Glipizide [Glipizide ER] 5 mg PO DAILY 05/13/22 [History] Levothyroxine Sodium [Levothyroxine] 25 mcg PO DAILY 05/13/22 [History] Losartan Potassium 50 mg [Cozaar 50 MG] 50 mg PO DAILY 05/13/22 [History] Metformin HCl 850 mg [Glucophage 850 MG] 850 mg PO BID 05/13/22 [History] Montelukast Sodium 10 mg [Singulair 10 MG] 10 mg PO DAILY 05/13/22 [History] Omeprazole 20 mg PO DAILY 05/13/22 [History] hydroCHLOROthiazide [Hydrochlorothiazide] 12.5 mg PO DAILY 05/13/22 [History] Hx Tetanus, Diphtheria Vaccination/Date Given: Yes Hx Influenza Vaccination/Date Given: Yes Hx Pneumococcal Vaccination/Date Given: Yes Immunizations Up to Date: Yes Travel Risk - International Travel Have you traveled outside of the country in past 3 weeks: No - Coronavirus Screening Are you exhibiting any of the following symptoms?: No Close contact with a COVID-19 positive Pt in past 14-21 Days: No - Vaccine Status Have you recieved a Covid-19 vaccination: Yes [employer]: [employer] - Review of Systems Constitutional: No Symptoms Ears, Nose, & Throat: No Symptoms Respiratory: No Symptoms Cardiac: No Symptoms Abdominal/Gastrointestinal: No Symptoms Genitourinary Symptoms: No Symptoms Musculoskeletal: Fall, Joint Pain, Joint Swelling, No Joint Redness Skin: No Symptoms Neurological: No Symptoms - Past Medical History Pertinent Past Medical History: Yes Neurological History: No Pertinent History ENT History: Cataracts Cardiac History: High Cholesterol, Hypertension Respiratory History: No Pertinent History Endocrine Medical History: Diabetes Type II, Hypothyroidism Musculoskeletal History: Arthritis, Fibromyalgia GI Medical History: Diverticulitis, GERD, Gallbladder Disease History: Other Psycho-Social History: No Pertinent History Female Reproductive Disorders: No Pertinent History Other Medical History: mass on kidney, anemia - Past Surgical History Past Surgical History: Yes Neuro Surgical History: No Pertinent History Cardiac: No Pertinent History Respiratory: No Pertinent History Gastrointestinal: Appendectomy, Cholecystectomy Genitourinary: No Pertinent History Musculoskeletal: No Pertinent History Female Surgical History: Hysterectomy, Dilation & Curettage Other Surgical History: right thumb, shoulder - Social History Smoking Status: Never smoker Exposure to second hand smoke: No Drug Use: none Patient Lives Alone: No - Nursing Vital Signs Nursing Vital Signs: Initial Vital Signs Temperature 97.5 F 02/02/23 20:09 Pulse Rate 81 02/02/23 20:09 Respiratory Rate 18 02/02/23 20:09 Blood Pressure 129/107 02/02/23 20:09 O2 Sat by Pulse Oximetry 98 02/02/23 20:09 Pain Scale Pain Intensity 7 - Physical Exam General Appearance: no apparent distress Hips Exam: left: bone tenderness, pain (GTB), soft tissue tenderness Legs Exam: left leg: ecchymosis, pain, soft tissue tenderness, swelling Neuro/Tendon Exam: normal sensation, normal motor functions, normal tendon functions Mental Status Exam: alert, oriented x 3, cooperative Skin Exam: normal color, warm, dry SpO2 Interpretation: normal SpO2: 98 O2 Delivery: Room Air Procedures - Additional Procedures Progress: Trochanteric bursitis injection, left Informed consent was obtained from the patient. With the patient lying on the examination table in the lateral decubitus position on the unaffected hip. The p oint of maximal tenderness on the greater trochanter was identified and marked and then prepped in the usual sterile fashion. Using a 22 gauge 1.5 inch needle, 2 mL of lidocaine, 2 mL of marcaine and 40 mg of triamcinolone were injected into the trochanteric bursa without difficulty. After injection, the hip was passively moved through the full range of motion and a sterile dressing was applied. The patient tolerated the procedure well. Aftercare discussed. - Course Nursing assessment & vital signs reviewed: Yes - Radiology Exams Left Hip X-ray Interpretation: Interpreted by me, No Fracture Left Knee X-ray Interpretation: Interpreted by me, No Fracture Ordered Tests: Active Orders 24 hr Category Date Time Status Cold Application STAT Care 02/02/23 20:26 Completed HIP UNI (2V) INCL PEL IF DONE Stat Exams 02/02/23 20:27 Taken KNEE (3 VIEWS) Stat Exams 02/02/23 20:28 Taken D-DIMER QUANTITATIVE Stat Lab 02/02/23 21:17 Completed Medication Summary Discontinued Medications Generic Name Dose Route Start Last Admin Trade Name Scooter PRN Reason Stop Dose Admin Acetaminophen 975 mg 02/02/23 20:26 02/02/23 21:12 Acetaminophen 325 Mg Tablet PO 02/02/23 20:27 975 mg STAT ONE Administration Acetaminophen Confirm 02/02/23 21:09 Acetaminophen 325 Mg Tablet Administered 02/02/23 21:10 Dose 975 mg .ROUTE .STK-MED ONE Bupivacaine HCl/Epinephrine Bitart Confirm 02/02/23 22:15 Bupivacaine Hcl/Epinephrine 10 Ml Vial Administered 02/02/23 22:16 Dose 10 ml .ROUTE .STK-MED ONE Ketorolac Tromethamine 60 mg 02/02/23 20:26 02/02/23 21:10 Ketorolac Tromethamine 30 Mg/Ml Inj IM 02/02/23 20:27 60 mg STAT ONE Administration Ketorolac Tromethamine Confirm 02/02/23 21:08 Ketorolac Tromethamine 30 Mg/Ml Inj Administered 02/02/23 21:09 Dose 60 mg .ROUTE .STK-MED ONE Ondansetron HCl 4 mg 02/02/23 20:26 02/02/23 21:12 Zofran 4 Mg/Udtablet Orally Disintegrating PO 02/02/23 20:27 4 mg STAT ONE Administration Ondansetron HCl Confirm 02/02/23 21:08 Zofran 4 Mg/Udtablet Orally Disintegrating Administered 02/02/23 21:09 Dose 4 mg .ROUTE .STK-MED ONE Triamcinolone Acetonide Confirm 02/02/23 22:15 Triamcinolone Acetonide 40 Mg/Ml Ml Administered 02/02/23 22:16 Dose 40 mg .ROUTE .STK-MED ONE Lab/Rad Data: Laboratory Results 02/02/23 Range/Units 21:17 D-Dimer 0.38 (0.0-0.50) mg/L - Progress Progress: improved Counseled pt/family regarding: need for follow-up Medical Desision Making - Diagnostic Testing Diagnostic test were ordered, analyzed, and reviewed by me: Yes Radiological Interpretation: Interpreted by me, Reviewed by me - Risk of complications The pt has a mod risk of morbidity or mortality based on: Need for prescription drug management - Departure Departure Disposition: Home Clinical Impression: Greater trochanteric bursitis of left hip, Contusion of left tibia Condition: Good Critical Care Time: No Referrals: GUTIERREZ COOLEY [Primary Care Provider] - Follow up/PCP as directed Instructions: Hip Bursitis (DC), Hip Bursitis Exercises
[2023-02-02] MEDS ORDERED: ZOFRAN ODT 4 MG ONE (21:08)
[2023-02-02] MEDS ORDERED: TORAdol 30 mg Injection ONE (21:08)
[2023-02-02] MEDS ORDERED: TYLENOL 325 MG ONE (21:09)
[2023-02-02] MEDS ORDERED: Marcaine 0.5%/Epinephrine 10 ML ONE (22:15)
[2023-02-02] MEDS ORDERED: Kenalog-40 ONE (22:15)
[2023-02-02 22:16] VITALS: BP 120/64; PULSE 73
[2023-02-02 22:56] VITALS: O2SAT 98
--- NOTE | 2023-02-03 08:42 | XRAY ---
Indication: Left hip pain following fall. Comparison: None AP pelvis and 2 view left hip demonstrates osteopenia and a few pelvic phleboliths. No other bony, articular, or soft tissue abnormalities.
--- NOTE | 2023-02-03 08:44 | XRAY ---
Indication: Pain following fall. Comparison: None 3 view left knee demonstrates osteopenia, minimal/mild tricompartmental degenerative changes, and tiny spurring tibial tuberosity. No other bony, articular, or soft tissue abnormalities.
== END 2023-02-02 23:15 | disposition home or self-care (01) ==
LOC: ED 19:54
DX: M70.62 Trochanteric bursitis, left hip (principal); S80.12XA Contusion of left lower leg, initial encounter; W22.01XA Walked into wall, initial encounter; E78.5 Hyperlipidemia, unspecified; I10 Essential (primary) hypertension; E11.9 Type 2 diabetes mellitus without complications; Z79.84 Long term (current) use of oral hypoglycemic drugs; Z79.899 Other long term (current) drug therapy
CPT/HCPCS: 20610; 36415; 73502; 73562; 85379; 96372; 99283; J1885; J3301; Q0162; A9270-GY